=== PATIENT | male | born 1930 | race Caucasian/White ===

== ENCOUNTER 2016-06-10 07:18 | Day surgery (SDC) | payer MEDICARE ==
[2016-06-08 10:54] VITALS: BMI 36.8
[2016-06-10 08:24] VITALS: TEMP 97.9
[2016-06-10] MEDS: LACTATED RINGERS 1,000 ML IV SCH ×2 (08:32→08:38)
[2016-06-10 08:36] LABS: Glucose,Whole Blood 81 mg/dL (75-99)
[2016-06-10] MEDS ORDERED: PROPOFOL 10 MG/ML 20 ML VIAL IV ONE (08:49)
--- NOTE | 2016-06-10 09:05 | P.PCN ---
Date of Procedure: 06/10/16 Procedure(s) Performed: BRIEF HISTORY: Patient is a 85-year-old, pleasant, white male, scheduled for an upper endoscopy as a part of evaluation of persistent epigastric pain since January of last year. He has the symptoms 3 or 4 times a week and lasts several hours. He denies any heartburn. He does complain of excessive belching. He reports no significant change in her symptoms with eating and denies any nausea vomiting. No recent weight loss. PROCEDURE PERFORMED: Esophagogastroduodenoscopy. PREOPERATIVE DIAGNOSIS: Persistent epigastric pain of 3 months duration IV sedation per anesthesia. PROCEDURE: After informed consent was obtained, the patient was brought into the endoscopy unit. IV conscious sedation was administered by Anesthesia under continuous monitoring. Initially the Olympus GIF-140 video endoscope was inserted into the mouth. Esophagus intubated without any difficulty. It was gradually advanced into the stomach and duodenum and carefully examined. The bulb and the second part of the duodenum appeared normal. The scope at this time was withdrawn to the stomach, adequately insufflated with air, and upon careful examination, mucosa of the antrum, had mild diffuse gastritis and biopsies were done from this area. The body, cardia and the fundus appeared normal. The scope was then withdrawn into the esophagus. The GE junction was located at 43 cm from the incisors. The esophagus appeared normal. Biopsies were also done from the distal esophagus. There were no erosions or ulcerations seen and the patient tolerated the procedure well. IMPRESSION: 1. Mild antral diffuse gastritis. 2. No evidence of esophagitis or peptic ulcer disease. RECOMMENDATIONS: The findings of this examination were discussed with the patient as well as his family. He was advised to follow with the biopsy results. In the meantime he will given a prescription for Prilosec 20 mg daily half hour before dinner time and was briefly educated about antireflux measures. If symptoms do not improve in 4 weeks he was advised to follow up in office for further evaluation.
[2016-06-10 09:27] VITALS: BP 115/77; PULSE 95; RESP 18
== END 2016-06-10 09:45 | disposition home or self-care (01) ==
LOC: ORWHC2ENDO 07:18
PROVIDERS: ATTEND Internal Medicine Gastroenterology
DX: K29.50 Unspecified chronic gastritis without bleeding (principal); E11.9 Type 2 diabetes mellitus without complications; Z79.84 Long term (current) use of oral hypoglycemic drugs; Z79.4 Long term (current) use of insulin; Z79.899 Other long term (current) drug therapy; Z91.09 Other allergy status, other than to drugs and biological substances
CPT/HCPCS: 88305; 88342; 43239; J2704

== ENCOUNTER → 2016-08-14 | Outpatient (CLI) | payer MEDICARE ==
--- NOTE | 2016-08-14 16:23 | CT ---
EXAMINATION TYPE: CT chest wo con DATE OF EXAM: 08/14/2016 4:13 PM COMPARISON: 09/23/2015 HISTORY: f/u for pulm nodules CT DLP: [address] of the chest was performed with lung and mediastinal window settings submitted. The la ck of contrast limits evaluation of the vascular, mediastinal and parenchymal structures including th e upper abdomen. LUNGS: Extensive pleural-based calcifications compatible with asbestos-related pleural disease. There is a nodular pleural thickening at the left lung base stable relative to the prior study. There is a lso focal pleural-based density with comet tail extending to the left hilum felt to reflect round ate lectasis. Overall the appearance is unchanged relative to the prior examination. No evidence of the n ew nodularity. Hyperinflation compatible with COPD. MEDIASTINUM/DOMITILA: Thoracic aorta is of normal caliber with limited evaluation given lack of contrast . Atheromatous changes noted of the thoracic aorta. 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 The he art is mildly enlarged. No evidence for mediastinal mass. No lymph nodes greater than 1cm. UPPER ABDOMEN: No significant abnormality is seen. OTHER: No significant other abnormality. IMPRESSION: 1. 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 No interval change appreciated .
== END | disposition home or self-care (01) ==
LOC: RADCTMAIN 15:59
PROVIDERS: ATTEND Internal Medicine
DX: J94.8 Other specified pleural conditions (principal)
CPT/HCPCS: 71250

== ENCOUNTER 2016-08-30 08:40 | Inpatient (IN) | payer MEDICARE ==
[2016-08-30] MEDS ORDERED: IPRATROPIUM 0.5 MG/2.5 ML NEBU INHALATION STA (09:17)
[2016-08-30] MEDS ORDERED: ALBUTEROL NEBULIZED 2.5 MG/3 ML INHALATION STA (09:17)
[2016-08-30] MEDS ORDERED: ACETAMINOPHEN TAB 500 MG TAB PO STA (09:17)
[2016-08-30] MEDS ORDERED: methylPREDNISolone SOD SUCCI 125 MG/2 ML VIAL IV STA (09:17)
[2016-08-30] MEDS ORDERED: IBUPROFEN IV 600 MG in SODIUM CHLORIDE 0.9% 250 ML IV STA (09:18)
--- NOTE | 2016-08-30 09:20 | ED ---
General Adult HPI - General Chief complaint: Shortness of Breath Stated complaint: ELISSA, COUGHING Time Seen by Provider: 08/30/16 08:45 Source: patient, RN notes reviewed Mode of arrival: wheelchair Limitations: no limitations - History of Present Illness Initial comments: This is an 85-year-old male with past medical history significant for asbestosis. Patient comes in today for difficulty breathing. Patient states it started yesterday. Patient states been coughing quite a bit but he can't seem to breathe in or out. Patient states he is also a diabetic with hypertension. Patient denies any heart problems. Patient denies COPD. Patient denies any chest pain or palpitations. Patient denies any abdominal pain patient denies nausea vomiting or diarrhea per patient denies headache patient denies numbness weakness. Patient denies any recent injury or trauma. - Related Data Home Medications Medication Instructions Recorded Confirmed Aspirin 325 mg PO DAILY 06/08/16 08/30/16 Calcium Carbonate/Vitamin D3 1 tab PO BID 06/08/16 08/30/16 [Calcium 500-Vit D3 600 Tablet] Flaxseed Oil [[place]-3 Flaxseed Oil] 1,000 mg PO BID 06/08/16 08/30/16 Garlic 1 tab PO BID 06/08/16 08/30/16 Insulin Aspart [NovoLOG] 40 unit SQ TID-W/MEALS 06/08/16 08/30/16 Insulin Glargine [Lantus] 70 unit SQ BID 06/08/16 08/30/16 Losartan [Cozaar] 12.5 mg PO QAM 06/08/16 08/30/16 Montelukast [Singulair] 10 mg PO HS 06/08/16 08/30/16 Vit A,C & E/Lutein/Minerals 1 tab PO DAILY 06/08/16 08/30/16 [Ocuvite with Lutein Tablet] metFORMIN HCL 1,000 mg PO BID 06/08/16 08/30/16 Glucosamine Sulfate 750 mg PO BID 08/30/16 08/30/16 Ipratropium-Albuterol Nebulize 3 ml INHALATION RT-Q6H PRN 08/30/16 08/30/16 [Duoneb 0.5 mg-3 mg/3 ml Soln] Levalbuterol Nebulized [Xopenex 1.25 mg INHALATION RT-Q4H PRN 08/30/16 08/30/16 Nebulized] Allergies Allergy/AdvReac Type Severity Reaction Status Date / Time Iodine and Iodide Containing Allergy Unknown Verified 08/30/16 09:17 Produc Review of Systems ROS Statement: Those systems with pertinent positive or pertinent negative responses have been documented in the HPI. ROS Other: All systems not noted in ROS Statement are negative. Past Medical History Past Medical History: Diabetes Mellitus, Hyperlipidemia, Hypertension, Sleep Apnea/CPAP/BIPAP Additional Past Medical History / Comment(s): Abdominal bloating and gas pain- worse in the afternoon after meals,Asbestos,Uses 02 at 2.5 liters uses during the day and at night with cpap,Aortic valve stenosis,SOB with activity History of Any Multi-Drug Resistant Organisms: None Reported Past Surgical History: Cholecystectomy, Hernia Repair, Joint Replacement, Orthopedic Surgery Additional Past Surgical History / Comment(s): umbilical hernia,rt shoulder repair, rt knee replace. Past Anesthesia/Blood Transfusion Reactions: No Reported Reaction Past Psychological History: No Psychological Hx Reported Smoking Status: Former smoker Past Alcohol Use History: None Reported Additional Past Alcohol Use History / Comment(s): quit smoking 1959', smoked for approx 30 yrs >1ppd Past Drug Use History: None Reported - Past Family History Mother Family Medical History: No Reported History Additional Family Medical History / Comment(s): Parkinson's Father Family Medical History: Cancer Additional Family Medical History / Comment(s): esophagus General Exam - General Exam Comments Initial Comments: GENERAL: Patient is well-developed and well-nourished. Patient is nontoxic and well- hydrated and is in moderate distress. ENT: Neck is soft and supple. No significant lymphadenopathy is noted. Oropharynx is clear. Moist mucous membranes. Neck has full range of motion without eliciting any pain. EYES: The sclera were anicteric and conjunctiva were pink and moist. Extraocular movements were intact and pupils were equal round and reactive to light. Eyelids were unremarkable. PULMONARY: Decreased breath sounds throughout CARDIOVASCULAR: Patient is tachycardic at about 120 beats a minute ABDOMEN: Soft and nontender with normal bowel sounds. No palpable organomegaly was noted. There is no palpable pulsatile mass. SKIN: Skin is clear with no lesions or rashes and otherwise unremarkable. NEUROLOGIC: Patient is alert and oriented x3. Cranial nerves II through XII are grossly intact. Motor and sensory are also intact. Normal speech, volume and content. Symmetrical smile. MUSCULOSKELETAL: Normal extremities with adequate strength and full range of motion. No lower extremity swelling or edema. No calf tenderness. LYMPHATICS: No significant lymphadenopathy is noted PSYCHIATRIC: Normal psychiatric evaluation. Normal interpersonal interactions appears functionally intact in deals appropriately with others. No signs of depression. Mild anxiety Limitations: no limitations Course Vital Signs 08/30/16 08/30/16 08/30/16 08:41 09:16 09:37 Temperature 100.5 F H 101.4 F H Pulse Rate 125 H 129 H 127 H Respiratory 26 H 20 Rate Blood Pressure 123/83 134/81 O2 Sat by Pulse 88 L 97 Oximetry 08/30/16 08/30/16 08/30/16 09:42 10:12 10:40 Temperature 99.4 F Pulse Rate 130 H 125 H Respiratory 20 20 Rate Blood Pressure O2 Sat by Pulse 98 Oximetry Medical Decision Making - Medical Decision Making EKG shows sinus tachycardia at 123 bpm KS interval 164 QRS is 88 QT interval 320 QTC is 458. Patient's T-wave inversions in leads 1 and aVL and precordial leads V5 and V6. Patient's chest x-ray shows, pneumonia, also pulmonary edema. Patient's troponin was elevated I started patient on heparin because of this. Because of the patient's x-ray and fever I gave the patient Levaquin as well. I also gave the patient some Lasix because of the fluid overload seen on the chest x-ray. I spoke with Dr. Enriquez he agreed to admit the patient I admitted the patient I wrote orders and consult cardiology I continued the heparin Nitropaste aspirin Lasix and Levaquin on the floor. - Lab Data Result diagrams: 08/30/16 09:24 08/30/16 09:24 Lab Results 08/30/16 08/30/16 08/30/16 Range/Units 09:24 09:24 09:24 WBC 12.3 H (3.8-10.6) k/uL RBC 4.62 (4.30-5.90) m/uL Hgb 13.8 (13.0-17.5) gm/dL Hct 42.3 (39.0-53.0) % MCV 91.6 (80.0-100.0) fL MCH 29.8 (25.0-35.0) pg MCHC 32.6 (31.0-37.0) g/dL RDW 14.9 (11.5-15.5) % Plt Count 183 (150-450) k/uL Neutrophils % 83 % Lymphocytes % 9 % Monocytes % 5 % Eosinophils % 2 % Basophils % 0 % Neutrophils # 10.1 H (1.3-7.7) k/uL Lymphocytes # 1.1 (1.0-4.8) k/uL Monocytes # 0.6 (0-1.0) k/uL Eosinophils # 0.2 (0-0.7) k/uL Basophils # 0.1 (0-0.2) k/uL PT (9.0-12.0) sec INR (<1.1) APTT (22.0-30.0) sec Sodium 137 (137-145) mmol/L Potassium 4.8 (3.5-5.1) mmol/L Chloride 104 (98-107) mmol/L Carbon Dioxide 24 (22-30) mmol/L Anion Gap 9 mmol/L BUN 15 (9-20) mg/dL Creatinine 0.84 (0.66-1.25) mg/dL Est GFR (MDRD) Af Amer >60 (>60 ml/min/1.73 sqM) Est GFR (MDRD) Non-Af >60 (>60 ml/min/1.73 sqM) Glucose 158 H (74-99) mg/dL Plasma Lactic Acid Joel (0.7-2.0) mmol/L Calcium 9.3 (8.4-10.2) mg/dL Magnesium 1.7 (1.6-2.3) mg/dL Total Bilirubin 2.6 H (0.2-1.3) mg/dL AST 37 (17-59) U/L ALT 45 (21-72) U/L Alkaline Phosphatase 109 (38-126) U/L Total Creatine Kinase 231 H (55-170) U/L CK-MB (CK-2) 6.3 H* (0.0-2.4) ng/mL CK-MB (CK-2) Rel Index 2.7 Troponin I 0.595 H* (0.000-0.034) ng/mL NT-Pro-B Natriuret Pep pg/mL Total Protein 6.9 (6.3-8.2) g/dL Albumin 3.6 (3.5-5.0) g/dL Urine Color Urine Appearance (Clear) Urine pH (5.0-8.0) Ur Specific [place] (1.001-1.035) Urine Protein (Negative) Urine Glucose (UA) (Negative) Urine Ketones (Negative) Urine Blood (Negative) Urine Nitrite (Negative) Urine Bilirubin (Negative) Urine Urobilinogen (<2.0) mg/dL Ur Leukocyte Esterase (Negative) Urine RBC (0-5) /hpf Urine Bacteria (None) /hpf Hyaline Casts (0-2) /lpf Urine Mucus (None) /hpf 08/30/16 08/30/16 08/30/16 Range/Units 09:24 09:24 09:24 WBC (3.8-10.6) k/uL RBC (4.30-5.90) m/uL Hgb (13.0-17.5) gm/dL Hct (39.0-53.0) % MCV (80.0-100.0) fL MCH (25.0-35.0) pg MCHC (31.0-37.0) g/dL RDW (11.5-15.5) % Plt Count (150-450) k/uL Neutrophils % % Lymphocytes % % Monocytes % % Eosinophils % % Basophils % % Neutrophils # (1.3-7.7) k/uL Lymphocytes # (1.0-4.8) k/uL Monocytes # (0-1.0) k/uL Eosinophils # (0-0.7) k/uL Basophils # (0-0.2) k/uL PT 11.9 (9.0-12.0) sec INR 1.2 (<1.1) APTT 26.2 (22.0-30.0) sec Sodium (137-145) mmol/L Potassium (3.5-5.1) mmol/L Chloride (98-107) mmol/L Carbon Dioxide (22-30) mmol/L Anion Gap mmol/L BUN (9-20) mg/dL Creatinine (0.66-1.25) mg/dL Est GFR (MDRD) Af Amer (>60 ml/min/1.73 sqM) Est GFR (MDRD) Non-Af (>60 ml/min/1.73 sqM) Glucose (74-99) mg/dL Plasma Lactic Acid Joel 1.9 (0.7-2.0) mmol/L Calcium (8.4-10.2) mg/dL Magnesium (1.6-2.3) mg/dL Total Bilirubin (0.2-1.3) mg/dL AST (17-59) U/L ALT (21-72) U/L Alkaline Phosphatase (38-126) U/L Total Creatine Kinase (55-170) U/L CK-MB (CK-2) (0.0-2.4) ng/mL CK-MB (CK-2) Rel Index Troponin I (0.000-0.034) ng/mL NT-Pro-B Natriuret Pep 3060 pg/mL Total Protein (6.3-8.2) g/dL Albumin (3.5-5.0) g/dL Urine Color Urine Appearance (Clear) Urine pH (5.0-8.0) Ur Specific [place] (1.001-1.035) Urine Protein (Negative) Urine Glucose (UA) (Negative) Urine Ketones (Negative) Urine Blood (Negative) Urine Nitrite (Negative) Urine Bilirubin (Negative) Urine Urobilinogen (<2.0) mg/dL Ur Leukocyte Esterase (Negative) Urine RBC (0-5) /hpf Urine Bacteria (None) /hpf Hyaline Casts (0-2) /lpf Urine Mucus (None) /hpf 08/30/16 Range/Units 09:39 WBC (3.8-10.6) k/uL RBC (4.30-5.90) m/uL Hgb (13.0-17.5) gm/dL Hct (39.0-53.0) % MCV (80.0-100.0) fL MCH (25.0-35.0) pg MCHC (31.0-37.0) g/dL RDW (11.5-15.5) % Plt Count (150-450) k/uL Neutrophils % % Lymphocytes % % Monocytes % % Eosinophils % % Basophils % % Neutrophils # (1.3-7.7) k/uL Lymphocytes # (1.0-4.8) k/uL Monocytes # (0-1.0) k/uL Eosinophils # (0-0.7) k/uL Basophils # (0-0.2) k/uL PT (9.0-12.0) sec INR (<1.1) APTT (22.0-30.0) sec Sodium (137-145) mmol/L Potassium (3.5-5.1) mmol/L Chloride (98-107) mmol/L Carbon Dioxide (22-30) mmol/L Anion Gap mmol/L BUN (9-20) mg/dL Creatinine (0.66-1.25) mg/dL Est GFR (MDRD) Af Amer (>60 ml/min/1.73 sqM) Est GFR (MDRD) Non-Af (>60 ml/min/1.73 sqM) Glucose (74-99) mg/dL Plasma Lactic Acid Joel (0.7-2.0) mmol/L Calcium (8.4-10.2) mg/dL Magnesium (1.6-2.3) mg/dL Total Bilirubin (0.2-1.3) mg/dL AST (17-59) U/L ALT (21-72) U/L Alkaline Phosphatase (38-126) U/L Total Creatine Kinase (55-170) U/L CK-MB (CK-2) (0.0-2.4) ng/mL CK-MB (CK-2) Rel Index Troponin I (0.000-0.034) ng/mL NT-Pro-B Natriuret Pep pg/mL Total Protein (6.3-8.2) g/dL Albumin (3.5-5.0) g/dL Urine Color Yellow Urine Appearance Clear (Clear) Urine pH 5.0 (5.0-8.0) Ur Specific [place] 1.019 (1.001-1.035) Urine Protein 1+ H (Negative) Urine Glucose (UA) Negative (Negative) Urine Ketones 1+ H (Negative) Urine Blood Negative (Negative) Urine Nitrite Negative (Negative) Urine Bilirubin Negative (Negative) Urine Urobilinogen 2.0 (<2.0) mg/dL Ur Leukocyte Esterase Negative (Negative) Urine RBC 1 (0-5) /hpf Urine Bacteria Rare H (None) /hpf Hyaline Casts 3 H (0-2) /lpf Urine Mucus Rare H (None) /hpf Critical Care Time Critical Care Time: Yes Total Critical Care Time: 35 Disposition Clinical Impression: Non-STEMI (non-ST elevated myocardial infarction), Pulmonary edema, Pneumonia Disposition: ADMITTED IP TO THIS HOSP Time of Disposition: 11:40
[2016-08-30 09:36] LABS: Basophils # (A) 0.1 k/uL (0-0.2); Basophils % (A) 0 %; CH 29.4; CHCM 32.3; Eosinophils # (A) 0.2 k/uL (0-0.7); Eosinophils % (A) 2 %; HCT 42.3 % (39.0-53.0); HDW 2.89; HGB 13.8 gm/dL (13.0-17.5); Luc # (Auto) 0.15; Luc % (Auto) 1; Lymphocytes # (A) 1.1 k/uL (1.0-4.8); Lymphocytes % (A) 9 %; MCH 29.8 pg (25.0-35.0); MCHC 32.6 g/dL (31.0-37.0); MCV 91.6 fL (80.0-100.0); Mean Platelet Volume 6.9; Monocytes # (A) 0.6 k/uL (0-1.0); Monocytes % (A) 5 %; Neutrophils # (A) 10.1 k/uL (1.3-7.7); Neutrophils % (A) 83 %; RBC 4.62 m/uL (4.30-5.90); RDW 14.9 % (11.5-15.5); WBC 12.3 k/uL (3.8-10.6); WBC (Perox) 12.45
[2016-08-30 09:45] LABS: INR 1.2 (<1.1); Partial Thromboplastin Time 26.2 sec (22.0-30.0); Prothrombin Time 11.9 sec (9.0-12.0)
[2016-08-30 09:57] LABS: ALT 45 U/L (21-72); AST 37 U/L (17-59); Alkaline Phosphatase 109 U/L (38-126); Anion Gap 9 mmol/L; Blood Urea Nitrogen 15 mg/dL (9-20); Calcium 9.3 mg/dL (8.4-10.2); Carbon Dioxide 24 mmol/L (22-30); Chloride 104 mmol/L (98-107); Glucose 158 mg/dL (74-99); Magnesium 1.7 mg/dL (1.6-2.3); Non-African American GFR(MDRD) >60 (>60 ml/min/1.73 sqM); Potassium 4.8 mmol/L (3.5-5.1); Sodium 137 mmol/L (137-145); Total Bilirubin 2.6 mg/dL (0.2-1.3); Total Protein 6.9 g/dL (6.3-8.2)
[2016-08-30 09:58] LABS: Appearance,Urine Clear (Clear); Bacteria,Urine Rare /hpf; Bilirubin,Urine Negative (Negative); Glucose,Urine (UA) Negative (Negative); Ketones,Urine 1+ (Negative); Leukocyte Esterase,Urine Negative (Negative); Mucus,Urine Rare /hpf; Nitrite,Urine Negative (Negative); Particle Count 3922; Protein,Urine 1+ (Negative); RBC,Urine 1 /hpf (0-5); Specific Gravity,Urine 1.019 (1.001-1.035); UA Billing (MACRO vs. MICRO) MICRO
--- NOTE | 2016-08-30 10:30 | XR ---
EXAMINATION TYPE: XR chest 2V DATE OF EXAM: 08/30/2016 10:21 AM COMPARISON: Correlation CT 08/14/2016 HISTORY: 85-year-old male with difficulty breathing TECHNIQUE: Frontal and lateral views FINDINGS: The heart is mildly enlarged. Atherosclerotic calcifications throughout the aorta. Diffuse interstiti al opacities somewhat more confluent in the right suprahilar region and left mid to lower lung. Multi ple calcified pleural plaques are present. Blunting of the left posterior costophrenic angle since [address] where there is pleural parenchymal scarring. Large central pulmonary arteries sug gesting pulmonary arterial hypertension. IMPRESSION: 1. Multiple calcified pleural plaques and interstitial prominence related to prior asbestos exposure. The interstitium appears more accentuated as compared to the 08/14/2016 CT. 2. Correlate for possible etiologies including fluid overload with mild pulmonary vascular congestion or atypical pneumonias. 3. Pulmonary arterial hypertension.
[2016-08-30 10:47] LABS: Creatine Kinase MB 6.3 ng/mL (0.0-2.4); Troponin I 0.595 ng/mL (0.000-0.034)
[2016-08-30] MEDS ORDERED: LEVOFLOXACIN 750MG-D5W PMX 750 MG in DEXTROSE/WATER 1 150ML.BAG IVPB STA (10:54)
[2016-08-30] MEDS ORDERED: FUROSEMIDE 10 MG/ML 2 ML VIAL IV ONE (10:54)
[2016-08-30] MEDS ORDERED: HEPARIN SODIUM,PORCINE 5,000 UNIT/ML 1 ML VIAL IV ONE (10:55)
[2016-08-30] MEDS ORDERED: LEVOFLOXACIN 750MG-D5W PMX 750 MG in DEXTROSE/WATER 1 150ML.BAG IVPB SCH (11:00)
[2016-08-30] MEDS: HEPARIN SODIUM,PORCINE/D5W PMX 25,000 UNIT in DEXTROSE/WATER 1 500ML.BAG IV SCH (11:33)
[2016-08-30] MEDS ORDERED: ASPIRIN 81 MG CHEW PO STA (11:37)
[2016-08-30] MEDS ORDERED: NITROGLYCERIN OINT 1 INCH/GM PACKET TOPICAL STA (11:38)
[2016-08-30] MEDS ORDERED: ACETAMINOPHEN TAB 325 MG TAB PO PRN (11:41)
[2016-08-30] MEDS ORDERED: NITROGLYCERIN SL TABS 0.4 MG TAB SUBLINGUAL PRN (11:41)
[2016-08-30 13:17] VITALS: BMI 39.6
[2016-08-30 13:48] LABS: Glucose,Whole Blood 225 mg/dL (75-99)
[2016-08-30] MEDS ORDERED: FUROSEMIDE 10 MG/ML 2 ML VIAL IV SCH (16:00)
[2016-08-30 16:11] LABS: Creatine Kinase MB 9.1 ng/mL (0.0-2.4); Troponin I 0.729 ng/mL (0.000-0.034)
--- NOTE | 2016-08-30 17:04 | P.HPIM ---
History of Present Illness H&P Date: 08/30/16 85-year-old gentleman with history of asbestosis remote history of tobacco use comes in to the hospital with the progressive worsening of difficulty breathing over the last 2-3 days. She states that he has associated cough that is nonproductive in nature. In the emergency room patient underwent a chest x-ray which showed the chronic changes around the pulmonary vasculature, concerning for some congestion. Patient was given 1 dose of Lasix thereafter added a dose of steroid as well. EKG did reveal some diffuse ST elevations however did not meet criteria. There is a troponin elevation around 0.7 at peak Patient denies having any chest pain, headaches, dizziness, nausea, vomiting, diarrhea. Patient denies having any previous history of heart disease. In the time of my evaluation patient is doing well states that he is 100% better. Denies having any chest pain difficulty breathing with ambulation or exertion at this time. Review of Systems All systems: negative (Noted in HPI) Past Medical History Past Medical History: Diabetes Mellitus, Hyperlipidemia, Hypertension, Sleep Apnea/CPAP/BIPAP Additional Past Medical History / Comment(s): Abdominal bloating and gas pain- worse in the afternoon after meals,Asbestos,Uses 02 at 2.5 liters uses during the day and at night with cpap,Aortic valve stenosis,SOB with activity History of Any Multi-Drug Resistant Organisms: None Reported Past Surgical History: Cholecystectomy, Heart Catheterization, Hernia Repair, Joint Replacement, Orthopedic Surgery Additional Past Surgical History / Comment(s): umbilical hernia,rt shoulder repair, rt knee replace. Past Anesthesia/Blood Transfusion Reactions: No Reported Reaction Past Psychological History: No Psychological Hx Reported Smoking Status: Former smoker Past Alcohol Use History: None Reported Additional Past Alcohol Use History / Comment(s): quit smoking 1959', smoked for approx 30 yrs >1ppd Past Drug Use History: None Reported - Past Family History Mother Family Medical History: No Reported History Additional Family Medical History / Comment(s): Parkinson's Father Family Medical History: Cancer Additional Family Medical History / Comment(s): esophagus Medications and Allergies Home Medications Medication Instructions Recorded Confirmed Type Aspirin 325 mg PO DAILY 06/08/16 08/30/16 History Calcium Carbonate/Vitamin D3 1 tab PO BID 06/08/16 08/30/16 History [Calcium 500-Vit D3 600 Tablet] Flaxseed Oil [[place]-3 Flaxseed Oil] 1,000 mg PO BID 06/08/16 08/30/16 History Garlic 1 tab PO BID 06/08/16 08/30/16 History Insulin Aspart [NovoLOG] 40 unit SQ TID-W/MEALS 06/08/16 08/30/16 History Insulin Glargine [Lantus] 70 unit SQ BID 06/08/16 08/30/16 History Losartan [Cozaar] 12.5 mg PO QAM 06/08/16 08/30/16 History Montelukast [Singulair] 10 mg PO HS 06/08/16 08/30/16 History Vit A,C & E/Lutein/Minerals 1 tab PO DAILY 06/08/16 08/30/16 History [Ocuvite with Lutein Tablet] metFORMIN HCL 1,000 mg PO BID 06/08/16 08/30/16 History Glucosamine Sulfate 750 mg PO BID 08/30/16 08/30/16 History Ipratropium-Albuterol Nebulize 3 ml INHALATION RT-Q6H PRN 08/30/16 08/30/16 History [Duoneb 0.5 mg-3 mg/3 ml Soln] Levalbuterol Nebulized [Xopenex 1.25 mg INHALATION RT-Q4H PRN 08/30/16 08/30/16 History Nebulized] Allergies Allergy/AdvReac Type Severity Reaction Status Date / Time Iodine and Iodide Containing Allergy Unknown Verified 08/30/16 09:17 Produc Physical Exam Vitals: Vital Signs Temp Pulse Pulse Resp BP BP Pulse Ox 08/30/16 16:28 20 08/30/16 16:27 97.1 F L 108 H 20 114/75 98 08/30/16 13:28 97 F L 115 H 22 112/69 94 L 08/30/16 12:34 115 H 18 115/65 98 08/30/16 12:28 97.7 F 115 H 22 124/58 96 Intake and Output 08/30/16 08/30/16 08/30/16 06:59 14:59 22:59 Other: Weight 125.191 kg Patient Weight 08/31/16 06:59 Weight 125.191 kg Physical exam Gen. appearance oriented 3 in no distress Neck is supple no JVD Lungs good air entry clear to auscultation no rhonchi or wheezing Heart S1-S2 heard regular rate and rhythm no murmurs appreciated Abdomen is soft nontender no organomegaly bowel sounds are intact Neurologically cranial nerves II-12 grossly intact no focal motor or sensory deficits noted Skin no abnormalities appreciated Results CBC & Chem 7: 08/30/16 09:24 08/30/16 09:24 Labs: Abnormal Lab Results - Last 24 Hours (Table) 08/30/16 08/30/16 Range/Units 13:45 14:45 POC Glucose (mg/dL) 225 H (75-99) mg/dL Total Creatine Kinase 311 H (55-170) U/L CK-MB (CK-2) 9.1 H* (0.0-2.4) ng/mL Troponin I 0.729 H* (0.000-0.034) ng/mL Thrombosis Risk Factor Assmnt - Choose All That Apply Any of the Below Risk Factors Present?: No Other Risk Factors: Yes Each Risk Factor Represents 3 Points: Age 75 years or older Other congenital or acquired thrombophilia - If yes, enter type in comment: No Thrombosis Risk Factor Assessment Total Risk Factor Score: 3 Thrombosis Risk Factor Assessment Level: Moderate Risk Assessment and Plan Plan: #1 non-Q-wave myocardial infarction #2 elevated BNP and other sequelae concerning for an acute exacerbation of heart failure unknown EF #3 history of hypertension #4 diabetes most type II currently on insulin therapy #5 objective sleep apnea #6 obesity #7 asbestosis #8 remote history of tobacco use #9 hyperglycemia induced secondary to steroid use Plan Continue IV heparin. We'll start the patient on 40 mgIV Lasix. Patient is stable. Denies having any orthopnea PND at this time. We'll give the patient Levemir 30 units and NovoLog 20 units subcu at this time. Change Levemir to 25 units twice a day and NovoLog 15 units 3 times a day and pre-meal sliding scale additionally Chest x-ray stable we'll repeat labs in a.m. we'll discontinue steroids continue Levaquin as patient did have this atypical cough last few days with chest x-ray findings as bronchitis be an underlying etiology however if patient continues to be stable by tomorrow we'll discontinue that as well underlying etiology of the heart being the primary source will be entertained O2 and when necessary morphine for ACS protocol Cardiac the consultation echocardiogram will also be ordered.
[2016-08-30 17:09] LABS: Glucose,Whole Blood 328 mg/dL (75-99)
[2016-08-30] MEDS ORDERED: HEPARIN SODIUM,PORCINE 5,000 UNIT/ML 1 ML VIAL IV PRN (17:42)
[2016-08-30] MEDS: INSULIN LISPRO (humaLOG) 300 UNIT/3 ML VIAL SQ SCH ×2 (18:26→20:32)
[2016-08-30] MEDS: NITROGLYCERIN OINT 1 INCH/GM PACKET TOPICAL SCH ×2 (18:27→22:52)
[2016-08-30] MEDS: INSULIN GLARGINE 100 UNIT/ML 10 ML VIAL SQ SCH (18:44)
[2016-08-30] MEDS: LEVALBUTEROL NEB 1.25 MG/3 ML AMP INHALATION PRN (19:40)
[2016-08-30 20:37] LABS: Glucose,Whole Blood 303 mg/dL (75-99)
[2016-08-30] MEDS ORDERED: INSULIN GLARGINE 100 UNIT/ML 10 ML VIAL SQ SCH (21:00)
[2016-08-30 22:21] LABS: Creatine Kinase MB 19.8 ng/mL (0.0-2.4)
[2016-08-30 22:22] LABS: Troponin I 1.72 ng/mL (0.000-0.034)
[2016-08-31] MEDS: LEVALBUTEROL NEB 1.25 MG/3 ML AMP INHALATION PRN ×4 (03:10→20:47)
[2016-08-31 06:11] LABS: Glucose,Whole Blood 239 mg/dL (75-99)
[2016-08-31] MEDS: NITROGLYCERIN OINT 1 INCH/GM PACKET TOPICAL SCH ×3 (06:20→18:57)
[2016-08-31] MEDS: INSULIN LISPRO (humaLOG) 300 UNIT/3 ML VIAL SQ SCH ×8 (06:20→20:36)
[2016-08-31] MEDS: HEPARIN SODIUM,PORCINE/D5W PMX 25,000 UNIT in DEXTROSE/WATER 1 500ML.BAG IV SCH ×2 (07:12→22:29)
[2016-08-31 07:17] LABS: Basophils % (A) 0 %; CH 29.8; CHCM 32.6; Eosinophils # (A) 0.1 k/uL (0-0.7); Eosinophils % (A) 0 %; HCT 42.1 % (39.0-53.0); HGB 13.5 gm/dL (13.0-17.5); Luc # (Auto) 0.09; Luc % (Auto) 1; Lymphocytes # (A) 0.6 k/uL (1.0-4.8); Lymphocytes % (A) 4 %; MCH 29.4 pg (25.0-35.0); MCV 91.8 fL (80.0-100.0); Mean Platelet Volume 6.9; Monocytes # (A) 0.8 k/uL (0-1.0); Monocytes % (A) 4 %; Neutrophils % (A) 92 %; RBC 4.59 m/uL (4.30-5.90); RDW 14.5 % (11.5-15.5); WBC 18.5 k/uL (3.8-10.6); WBC (Perox) 19.15
[2016-08-31 07:34] LABS: ALT 41 U/L (21-72); AST 55 U/L (17-59); Alkaline Phosphatase 90 U/L (38-126); Anion Gap 11 mmol/L; Blood Urea Nitrogen 28 mg/dL (9-20); Calcium 9.1 mg/dL (8.4-10.2); Carbon Dioxide 21 mmol/L (22-30); Chloride 103 mmol/L (98-107); Cholesterol 196 mg/dL (<200); Glucose 256 mg/dL (74-99); HDL Cholesterol 39 mg/dL (40-60); Non-African American GFR(MDRD) >60 (>60 ml/min/1.73 sqM); Sodium 135 mmol/L (137-145); Total Bilirubin 1.7 mg/dL (0.2-1.3); Total Protein 6.8 g/dL (6.3-8.2); Triglycerides 101 mg/dL (<150)
[2016-08-31 07:37] LABS: Potassium 4.9 mmol/L (3.5-5.1)
[2016-08-31] MEDS ORDERED: LEVOFLOXACIN 750MG-D5W PMX 750 MG in DEXTROSE/WATER 1 150ML.BAG IVPB SCH (09:00)
[2016-08-31] MEDS: INSULIN GLARGINE 100 UNIT/ML 10 ML VIAL SQ SCH ×2 (09:08→20:32)
[2016-08-31] MEDS: ASPIRIN 325 MG TAB PO SCH (09:08)
[2016-08-31] MEDS: FUROSEMIDE 10 MG/ML 4 ML VIAL IV SCH (09:09)
--- NOTE | 2016-08-31 11:11 | P.CRDCN ---
History of Present Illness Consult date: 08/31/16 History of present illness: This is a pleasant 85-year-old gentleman who sees Dr. 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 The patient is known to have chronic exertional dyspnea secondary to the chronic respiratory failure. Over the last few days his shortness of breath was getting worse. He did not experience any discomfort in the chest. No dizziness or lightheadedness and no syncope. He has been experiencing what it seems to be also a cough productive of sputum without any fever or chills. The chest x-ray showed chronic changes with mild vascular congestion. The EKG showed sinus tachycardia with diffuse ST changes consistent with ischemia most prominent in the lateral leads. The cardiac enzymes were checked also and came in to be consistent with acute ND. The troponin was more than 1. He underwent an echocardiogram which showed severely impaired LV function with an ejection fraction of 15-20% with global hypokinesia and evidence of very thickened aortic valve leaflets with mild to moderate aortic stenosis. He stated that he was told about the aortic stenosis in the past. I had a discussion with the patient and his family in the room. They would like to proceed with further workup and heart catheterization. I am going to add statin and metoprolol to the aspirin. I will obtain the medical records from the office. I would also contact Dr. Parmar to perform the heart catheterization on this gentleman. Past Medical History Past Medical History: Diabetes Mellitus, Hyperlipidemia, Hypertension, Sleep Apnea/CPAP/BIPAP Additional Past Medical History / Comment(s): Abdominal bloating and gas pain- worse in the afternoon after meals,Asbestos,Uses 02 at 2.5 liters uses during the day and at night with cpap,Aortic valve stenosis,SOB with activity History of Any Multi-Drug Resistant Organisms: None Reported Past Surgical History: Cholecystectomy, Heart Catheterization, Hernia Repair, Joint Replacement, Orthopedic Surgery Additional Past Surgical History / Comment(s): umbilical hernia,rt shoulder repair, rt knee replace. Past Anesthesia/Blood Transfusion Reactions: No Reported Reaction Past Psychological History: No Psychological Hx Reported Smoking Status: Former smoker Past Alcohol Use History: None Reported Additional Past Alcohol Use History / Comment(s): quit smoking 1960's, smoked for approx 30 yrs >1ppd Past Drug Use History: None Reported - Past Family History Mother Family Medical History: No Reported History Additional Family Medical History / Comment(s): Parkinson's Father Family Medical History: Cancer Additional Family Medical History / Comment(s): esophagus Medications and Allergies Home Medications Medication Instructions Recorded Confirmed Type Aspirin 325 mg PO DAILY 06/08/16 08/30/16 History Calcium Carbonate/Vitamin D3 1 tab PO BID 06/08/16 08/30/16 History [Calcium 500-Vit D3 600 Tablet] Flaxseed Oil [[place]-3 Flaxseed Oil] 1,000 mg PO BID 06/08/16 08/30/16 History Garlic 1 tab PO BID 06/08/16 08/30/16 History Insulin Aspart [NovoLOG] 15 unit SQ TID-W/MEALS 06/08/16 08/30/16 History Insulin Glargine [Lantus] 20 unit SQ BID 06/08/16 08/30/16 History Losartan [Cozaar] 12.5 mg PO QAM 06/08/16 08/30/16 History Montelukast [Singulair] 10 mg PO HS 06/08/16 08/30/16 History Vit A,C & E/Lutein/Minerals 1 tab PO DAILY 06/08/16 08/30/16 History [Ocuvite with Lutein Tablet] metFORMIN HCL 1,000 mg PO BID 06/08/16 08/30/16 History Glucosamine Sulfate 750 mg PO BID 08/30/16 08/30/16 History Ipratropium-Albuterol Nebulize 3 ml INHALATION RT-Q6H PRN 08/30/16 08/30/16 History [Duoneb 0.5 mg-3 mg/3 ml Soln] Levalbuterol Nebulized [Xopenex 1.25 mg INHALATION RT-Q4H PRN 08/30/16 08/30/16 History Nebulized] Allergies Allergy/AdvReac Type Severity Reaction Status Date / Time Iodine and Iodide Containing Allergy Unknown Verified 08/30/16 09:17 Produc Physical Exam Vitals: Vital Signs Temp Pulse Pulse Resp BP BP Pulse Ox 08/31/16 08:27 110 H 08/31/16 08:18 108 H 98 08/31/16 08:00 97.1 F L 121 H 91/49 97 08/31/16 03:20 100 08/31/16 03:10 105 H 08/31/16 02:56 97.6 F 126 H 18 117/72 91 L 08/30/16 23:36 98.1 F 106 H 17 110/68 91 L 08/30/16 20:00 97.2 F L 113 H 18 130/78 96 08/30/16 19:51 112 H 08/30/16 19:40 110 H 96 08/30/16 16:28 20 08/30/16 16:27 97.1 F L 108 H 20 114/75 98 08/30/16 13:28 97 F L 115 H 22 112/69 94 L 08/30/16 12:34 115 H 18 115/65 98 08/30/16 12:28 97.7 F 115 H 22 124/58 96 Intake and Output 08/30/16 08/31/16 08/31/16 22:59 06:59 14:59 Intake Total 270.918 80 237.33 Output Total 400 700 Balance -129.082 -620 237.33 Intake: IV 20 80 Heparin Sodium,Porcine/ 20 80 D5w Pmx 25,000 unit In Dextrose/Water 1 500ml. bag @ 8 UNITS/KG/HR 20.03 mls/hr IV .Q24H [facility] Rx#: [id number] Intake, IV Titration 250.918 237.33 Amount Heparin Sodium,Porcine/ 250.918 237.33 D5w Pmx 25,000 unit In Dextrose/Water 1 500ml. bag @ 8 UNITS/KG/HR 20.03 mls/hr IV .Q24H [facility] Rx#: [id number] Output: Urine 400 700 Other: Voiding Method Urinal Urinal Weight 121.4 kg - Constitutional General appearance: no acute distress - Respiratory Respiratory: bilateral: diminished - Cardiovascular Rhythm: regular Heart sounds: normal: S1, S2 Results 08/31/16 06:53 08/31/16 06:53 Cardiac Enzymes 08/30/16 08/30/16 08/31/16 Range/Units 14:45 21:20 06:53 AST 55 (17-59) U/L CK-MB (CK-2) 9.1 H* 19.8 H* (0.0-2.4) ng/mL Troponin I 0.729 H* 1.720 H* (0.000-0.034) ng/mL Coagulation 08/30/16 08/30/16 08/31/16 Range/Units 17:14 21:20 06:53 APTT 35.9 H 64.0 H 35.4 H (22.0-30.0) sec Lipids 08/31/16 Range/Units 06:53 Triglycerides 101 (<150) mg/dL Cholesterol 196 (<200) mg/dL HDL Cholesterol 39 L (40-60) mg/dL CBC 08/31/16 Range/Units 06:53 WBC 18.5 H (3.8-10.6) k/uL RBC 4.59 (4.30-5.90) m/uL Hgb 13.5 (13.0-17.5) gm/dL Hct 42.1 (39.0-53.0) % Plt Count 176 (150-450) k/uL Comprehensive Metabolic Panel 08/31/16 Range/Units 06:53 Sodium 135 L (137-145) mmol/L Potassium 4.9 (3.5-5.1) mmol/L Chloride 103 (98-107) mmol/L Carbon Dioxide 21 L (22-30) mmol/L BUN 28 H (9-20) mg/dL Creatinine 0.90 (0.66-1.25) mg/dL Glucose 256 H (74-99) mg/dL Calcium 9.1 (8.4-10.2) mg/dL AST 55 (17-59) U/L ALT 41 (21-72) U/L Alkaline Phosphatase 90 (38-126) U/L Total Protein 6.8 (6.3-8.2) g/dL Albumin 3.6 (3.5-5.0) g/dL Current Medications Generic Name Dose Route Start Last Admin Trade Name Freq PRN Reason Stop Dose Admin Acetaminophen 650 mg 08/30/16 11:41 Tylenol Tab PO Q4HR PRN Mild Pain Aspirin 325 mg 08/31/16 09:00 08/31/16 09:08 Aspirin PO 325 mg DAILY [facility] Administration Furosemide 40 mg 08/31/16 09:00 08/31/16 09:09 Lasix IV 40 mg DAILY [facility] Administration Heparin Sodium (Porcine) 0 unit 08/30/16 17:42 08/30/16 18:29 Heparin IV 4,000 unit PER PROTOCOL PRN Administration Low PTT Protocol Heparin Sodium/Dextrose 25,000 500 mls @ 20.03 mls/hr 08/30/16 11:00 07:12 unit/ IV Solution IV 10.98 units/kg/hr .Q24H [facility] 27.49 mls/hr Protocol Administration 8 UNITS/KG/HR Levofloxacin 750 mg/ IV 150 mls @ 100 mls/hr 08/31/16 09:00 08/31/16 09:10 Solution IVPB 100 mls/hr Q24HR [facility] Administration Insulin Glargine 25 unit 08/30/16 19:00 08/31/16 09:08 Lantus SQ 25 unit BID [facility] Administration Insulin Human Lispro 40 unit 08/30/16 17:30 08/31/16 09:08 Humalog SQ Not Given TID-W/MEALS [facility] Insulin Human Lispro 0 unit 08/30/16 21:00 08/31/16 06:20 Humalog SQ 8 unit ACHS [facility] Administration Protocol Levalbuterol HCl 1.25 mg 08/30/16 16:46 08/31/16 08:15 Xopenex Nebulized INHALATION 1.25 mg RT-Q4H PRN Administration Shortness Of Breath Losartan Potassium 12.5 mg 08/31/16 09:00 Cozaar PO QAM [facility] Nitroglycerin 1 inch 08/30/16 18:00 08/31/16 06:20 Nitro-Bid Oint TOPICAL 1 inch Q6HR [facility] Administration Nitroglycerin 0.4 mg 08/30/16 11:41 Nitrostat SUBLINGUAL Q5M PRN Chest Pain Intake and Output 08/30/16 08/31/16 08/31/16 22:59 06:59 14:59 Intake Total 270.918 80 237.33 Output Total 400 700 Balance -129.082 -620 237.33 Intake: IV 20 80 Heparin Sodium,Porcine/ 20 80 D5w Pmx 25,000 unit In Dextrose/Water 1 500ml. bag @ 8 UNITS/KG/HR 20.03 mls/hr IV .Q24H [facility] Rx#: [id number] Intake, IV Titration 250.918 237.33 Amount Heparin Sodium,Porcine/ 250.918 237.33 D5w Pmx 25,000 unit In Dextrose/Water 1 500ml. 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
[2016-08-31] MEDS: LOSARTAN 25 MG TAB PO SCH (11:29)
[2016-08-31 11:36] LABS: Glucose,Whole Blood 235 mg/dL (75-99)
[2016-08-31] MEDS ORDERED: SODIUM CHLORIDE 0.9% 1,000 ML in EMPTY BAG 1 BAG IV ONE (12:01)
[2016-08-31] MEDS ORDERED: ALPRAZolam 0.25 MG TAB PO PRN (12:01)
[2016-08-31] MEDS ORDERED: NITROGLYCERIN SL TABS 0.4 MG TAB SUBLINGUAL PRN (12:01)
--- NOTE | 2016-08-31 12:15 | ECHOF ---
Referral Reason:as MEASUREMENTS -------- HEIGHT: 182.9 cm WEIGHT: 121.1 kg BP: 117/72 IVSd: 1.3 cm (0.6 - 1.1) LVIDd: 4.4 cm (3.9 - 5.3) LVPWd: 1.4 cm (0.6 - 1.1) IVSs: 1.2 cm LVIDs: 4.2 cm LVPWs: 1.7 cm LAESV Index (A-L): 26.08 ml/m Ao Diam: 3.6 cm (2.0 - 3.7) AV Cusp: 0.6 cm (1.5 - 2.6) LA Diam: 4.5 cm (2.7 - 3.8) MV EXCURSION: 10.976 mm (> 18.000) MV EF SLOPE: 38 mm/s (70 - 150) EPSS: 1.4 cm MV E Bubba: 0.99 m/s MV DecT: 187 ms MV A Bubba: 0.56 m/s MV E/A Ratio: 1.77 AV maxP.29 mmHg AV meanP.16 mmHg FINDINGS -------- Sinus rhythm with extra systolic beats. This was a technically difficult study with suboptimal views. There is mild concentric left ventricular hypertrophy. There is severe global hypokinesis of LV . Overall left ventricular systolic function is severely impaired with, an EF < 20%. The right ventricle is normal in size and function. The left atrium is mildly dilated. The right atrium is normal in size. 1.5mg of Definity was utilized for enhancement of images Aortic valve is trileaflet and is severely thickened. There is [id number] aortic stenosis present. Peak/mean gradient across the Aortic Valve is 34.29mmHg / 21.16mmHg. The mitral valve leaflets are mildly thickened. Mild mitral regurgitation is present. Mild tricuspid regurgitation present. There is mild pulmonary hypertension. Unable to estimate RVSP due to inadequate TR jet spectral doppler profile. Pulmonic valve appears structurally normal. The aortic root size is normal. The pericardium is normal. CONCLUSIONS -------- 1. Sinus rhythm with extra systolic beats. 2. Aortic valve is trileaflet and is severely thickened. 3. Peak/mean gradient across the Aortic Valve is 34.29mmHg / 21.16mmHg. 4. The mitral valve leaflets are mildly thickened. 5. Mild mitral regurgitation is present. 6. Mild tricuspid regurgitation present. 7. There is mild pulmonary hypertension. 8. Pulmonic valve appears structurally normal. 9. The aortic root size is normal. 10. The pericardium is normal. 11. This was a technically difficult study with suboptimal views. 12. There is mild concentric left ventricular hypertrophy. 13. There is severe global hypokinesis of LV . 14. Overall left ventricular systolic function is severely impaired with, an EF < 20%. 15. The right ventricle is normal in size and function. 16. The left atrium is mildly dilated. 17. The right atrium is normal in size. 18. 1.5mg of Definity was utilized for enhancement of images NONPROFIT MANAGER: Jie Rodriguez RDCS
[2016-08-31 16:35] LABS: Glucose,Whole Blood 68 mg/dL (75-99)
[2016-08-31 17:03] LABS: Glucose,Whole Blood 86 mg/dL (75-99)
--- NOTE | 2016-08-31 18:52 | P.PN ---
Subjective 85-year-old gentleman with history of asbestosis remote history of tobacco use comes in to the hospital with the progressive worsening of difficulty breathing over the last 2-3 days. She states that he has associated cough that is nonproductive in nature. In the emergency room patient underwent a chest x-ray which showed the chronic changes around the pulmonary vasculature, concerning for some congestion. Patient was given 1 dose of Lasix thereafter added a dose of steroid as well. EKG did reveal some diffuse ST elevations however did not meet criteria. There is a troponin elevation around 0.7 at peak Patient denies having any chest pain, headaches, dizziness, nausea, vomiting, diarrhea. Patient denies having any previous history of heart disease. In the time of my evaluation patient is doing well states that he is 100% better. Denies having any chest pain difficulty breathing with ambulation or exertion at this time. 08/31/16 No cp, headaches, nausea, vomiting, diarrhea, abdominal pain. some difficulty in breathing is reported. No orthopnea or PND Objective - Vital Signs Vital signs: Vital Signs Temp 97.1 F L 08/31/16 08:00 Pulse 110 H 08/31/16 16:00 Resp 18 08/31/16 02:56 BP 88/59 08/31/16 16:00 Pulse Ox 89 L 08/31/16 16:00 Intake & Output 08/30/16 08/31/16 08/31/16 18:59 06:59 18:59 Intake Total 139.125 067.129 2529.33 Output Total 1100 1100 Balance 139.125 -888.207 169.33 Weight 125.191 kg 121.4 kg Intake: IV 100 160 Heparin Sodium,Porcine/ 100 160 D5w Pmx 25,000 unit In Dextrose/Water 1 500ml. bag @ 8 UNITS/KG/HR 20.03 mls/hr IV .Q24H [facility] Rx#: [id number] Intake, IV Titration 139.125 111.793 629.33 Amount Heparin Sodium,Porcine/ 139.125 111.793 237.33 D5w Pmx 25,000 unit In Dextrose/Water 1 500ml. bag @ 8 UNITS/KG/HR 20.03 mls/hr IV .Q24H [facility] Rx#: [id number] Levofloxacin 750Mg-D5w 150 Pmx 750 mg In Dextrose/ Water 1 150ml.bag @ 100 mls/hr IVPB Q24HR [facility] Rx# :[id number] Sodium Chloride 0.9% 1, 242 000 ml In Empty Bag 1 bag @ 1 ML/KG/HR 121.4 mls/ hr IV .Q8H15M [facility] Rx#: [id number] Oral 480 Output: Urine 1100 1100 Other: Voiding Method Urinal # Voids 1 - Constitutional General appearance: Present: no acute distress - EENT Eyes: Present: EOMI, PERRLA - Neck Neck: Present: normal ROM - Respiratory Respiratory: bilateral: CTA, rales, negative: rhonchi, wheezing - Cardiovascular Rhythm: regular Heart sounds: normal: S1, S2 Abnormal Heart Sounds: Present: systolic murmur - Gastrointestinal General gastrointestinal: Present: normal bowel sounds, soft. Absent: organomegaly - Integumentary Integumentary: Present: normal - Neurologic Neurologic: Present: CNII-XII intact. Absent: focal deficits - Musculoskeletal Musculoskeletal: Present: generalized weakness - Psychiatric Psychiatric: Present: A&O x's 3, appropriate affect - Labs CBC & Chem 7: 08/31/16 06:53 08/31/16 06:53 Labs: Abnormal Lab Results - Last 24 Hours (Table) 08/30/16 08/30/16 08/30/16 Range/Units 20:27 21:20 21:20 WBC (3.8-10.6) k/uL Neutrophils # (1.3-7.7) k/uL Lymphocytes # (1.0-4.8) k/uL APTT 64.0 H (22.0-30.0) sec Sodium (137-145) mmol/L Carbon Dioxide (22-30) mmol/L BUN (9-20) mg/dL Glucose (74-99) mg/dL POC Glucose (mg/dL) 303 H (75-99) mg/dL Total Bilirubin (0.2-1.3) mg/dL Total Creatine Kinase 433 H (55-170) U/L CK-MB (CK-2) 19.8 H* (0.0-2.4) ng/mL Troponin I 1.720 H* (0.000-0.034) ng/mL LDL Cholesterol, Calc (0-99) mg/dL HDL Cholesterol (40-60) mg/dL 08/31/16 08/31/16 08/31/16 Range/Units 06:08 06:53 06:53 WBC 18.5 H (3.8-10.6) k/uL Neutrophils # 17.0 H (1.3-7.7) k/uL Lymphocytes # 0.6 L (1.0-4.8) k/uL APTT (22.0-30.0) sec Sodium 135 L (137-145) mmol/L Carbon Dioxide 21 L (22-30) mmol/L BUN 28 H (9-20) mg/dL Glucose 256 H (74-99) mg/dL POC Glucose (mg/dL) 239 H (75-99) mg/dL Total Bilirubin 1.7 H (0.2-1.3) mg/dL Total Creatine Kinase (55-170) U/L CK-MB (CK-2) (0.0-2.4) ng/mL Troponin I (0.000-0.034) ng/mL LDL Cholesterol, Calc 137 H (0-99) mg/dL HDL Cholesterol 39 L (40-60) mg/dL 08/31/16 08/31/16 08/31/16 Range/Units 06:53 11:35 16:28 WBC (3.8-10.6) k/uL Neutrophils # (1.3-7.7) k/uL Lymphocytes # (1.0-4.8) k/uL APTT 35.4 H (22.0-30.0) sec Sodium (137-145) mmol/L Carbon Dioxide (22-30) mmol/L BUN (9-20) mg/dL Glucose (74-99) mg/dL POC Glucose (mg/dL) 235 H 68 L (75-99) mg/dL Total Bilirubin (0.2-1.3) mg/dL Total Creatine Kinase (55-170) U/L CK-MB (CK-2) (0.0-2.4) ng/mL Troponin I (0.000-0.034) ng/mL LDL Cholesterol, Calc (0-99) mg/dL HDL Cholesterol (40-60) mg/dL Assessment and Plan Plan: #1 non-Q-wave myocardial infarction #2 acute exacerbation of heart failure , systolic in nature, with > #3 history of hypertension #4 diabetes most type II currently on insulin therapy #5 objective sleep apnea #6 obesity #7 asbestosis #8 remote history of tobacco use #9 hyperglycemia induced secondary to steroid use 10/ Plan Continue IV heparin. We'll start the patient on 40 mgIV Lasix. echo results reveiwed increased valve gradient cardiac cath murtaza change insulin to levemir 20 units am, 10 bedtime 1/2 basal due to NPO tonight. premeal 15units tid strict I/o DVT prophylaxis.
[2016-08-31] MEDS: ATORVASTATIN 40 MG TAB PO SCH (20:16)
[2016-08-31] MEDS: METOPROLOL TARTRATE 12.5 MG TAB PO SCH (20:17)
[2016-08-31] MEDS: ALPRAZolam 0.5 MG TAB PO PRN (20:26)
[2016-08-31 20:35] LABS: Glucose,Whole Blood 104 mg/dL (75-99)
[2016-09-01] MEDS: LEVALBUTEROL NEB 1.25 MG/3 ML AMP INHALATION PRN ×4 (00:39→20:18)
[2016-09-01] MEDS: NITROGLYCERIN OINT 1 INCH/GM PACKET TOPICAL SCH ×3 (03:15→17:28)
[2016-09-01 06:09] LABS: Glucose,Whole Blood 141 mg/dL (75-99)
[2016-09-01] MEDS: INSULIN LISPRO (humaLOG) 300 UNIT/3 ML VIAL SQ SCH ×7 (06:20→22:24)
[2016-09-01] MEDS: FUROSEMIDE 10 MG/ML 4 ML VIAL IV SCH (06:22)
[2016-09-01] MEDS: ASPIRIN 325 MG TAB PO SCH (06:22)
[2016-09-01] MEDS: LOSARTAN 25 MG TAB PO SCH (06:22)
[2016-09-01] MEDS: METOPROLOL TARTRATE 12.5 MG TAB PO SCH (06:24)
[2016-09-01 06:44] LABS: Basophils % (A) 0 %; CH 29.3; CHCM 31.7; Eosinophils # (A) 0.2 k/uL (0-0.7); Eosinophils % (A) 1 %; HCT 37.8 % (39.0-53.0); HDW 2.79; HGB 12.2 gm/dL (13.0-17.5); Hypochromasia Slight; Luc # (Auto) 0.16; Luc % (Auto) 1; Lymphocytes # (A) 1.4 k/uL (1.0-4.8); Lymphocytes % (A) 9 %; MCHC 32.3 g/dL (31.0-37.0); Mean Platelet Volume 7.1; Monocytes # (A) 0.8 k/uL (0-1.0); Monocytes % (A) 5 %; Neutrophils # (A) 13.2 k/uL (1.3-7.7); Neutrophils % (A) 84 %; RBC 4.06 m/uL (4.30-5.90); RDW 14.9 % (11.5-15.5); WBC 15.7 k/uL (3.8-10.6); WBC (Perox) 15.84
[2016-09-01 06:57] LABS: ALT 51 U/L (21-72); AST 57 U/L (17-59); Alkaline Phosphatase 95 U/L (38-126); Anion Gap 8 mmol/L; Blood Urea Nitrogen 28 mg/dL (9-20); Calcium 8.9 mg/dL (8.4-10.2); Carbon Dioxide 25 mmol/L (22-30); Chloride 101 mmol/L (98-107); Glucose 135 mg/dL (74-99); Magnesium 1.8 mg/dL (1.6-2.3); Non-African American GFR(MDRD) >60 (>60 ml/min/1.73 sqM); Potassium 4.1 mmol/L (3.5-5.1); Sodium 134 mmol/L (137-145); Total Bilirubin 1.2 mg/dL (0.2-1.3)
--- NOTE | 2016-09-01 09:39 | XR ---
EXAMINATION TYPE: XR chest 1V portable DATE OF EXAM: 09/01/2016 9:03 AM CLINICAL HISTORY: Difficulty breathing progress study. Pneumonia and pulmonary edema. TECHNIQUE: Single AP portable upright view of the chest is obtained. COMPARISON: Chest x-ray from August 30, 2016. FINDINGS: There is persistent cardiomegaly with atherosclerotic thoracic aorta. Calcified pleural pl aques are redemonstrated bilaterally. There is chronic parenchymal change with improved aeration righ t suprahilar region noted. There is left mid to lower lung opacities.. Suspect small left pleural eff usion or pleural thickening. No pneumothorax seen bilaterally. Osseous structures are intact. IMPRESSION: Calcified pleural plaques consistent with prior asbestos exposure. Chronic parenchymal ch anges and cardiomegaly. Cannot exclude left basilar infiltrate and/or atelectasis on background of ch ronic changes. Suspect small left pleural effusion. All these findings are stable. Improved aeration right upper lobe is seen. No new infiltrate is present.
[2016-09-01] MEDS ORDERED: IV FLUID CONTINUATION 725 ML IV ONE (11:00)
[2016-09-01] MEDS ORDERED: diphenhydrAMINE 50 MG/ML 1 ML VIAL IVP ONE (11:40)
[2016-09-01] MEDS ORDERED: LIDOCAINE 2% INJ 20 MG/ML SQ ONE (11:42)
[2016-09-01] MEDS ORDERED: MIDAZOLAM 2 MG/2 ML VIAL IV ONE (11:42)
[2016-09-01] MEDS ORDERED: methylPREDNISolone SOD SUCCI 125 MG/2 ML VIAL IV ONE (11:49)
[2016-09-01] MEDS ORDERED: IOHEXOL 350 MG/ML 125ML BOTTLE INJ ONE (12:06)
[2016-09-01] MEDS ORDERED: RX INFO: IV CONTRAST WAS GIVEN 1 EACH MISC MISCELLANE PRN (12:11)
[2016-09-01] MEDS ORDERED: SODIUM CHLORIDE 0.9% 1,000 ML IV SCH (12:15)
[2016-09-01] MEDS ORDERED: FUROSEMIDE 10 MG/ML 4 ML VIAL IV STA (12:56)
[2016-09-01 13:09] LABS: Glucose,Whole Blood 134 mg/dL (75-99)
[2016-09-01] MEDS: INSULIN GLARGINE 100 UNIT/ML 10 ML VIAL SQ SCH ×2 (14:57→22:24)
--- NOTE | 2016-09-01 15:07 | CDI ---
In responding to this query, please exercise your independent professional judgment. The [facility] Coding Staff and Clinical Documentation Specialists appreciate your assistance in clarifying documentation, maintaining compliance with coding guidelines, accurately documenting patients condition and capturing severity of illness. The fact that a question is asked does not imply that any particular answer is desired or expected. Communication forms are a method of clarifying documentation and are not made part of the Legal Health Record. Thank you in advance for your clarification. Last Revision, July 2015 To[address]ito Hugo [address] [facility] [place] [address] Documentation Clarification Form Date: 09/01/2016 2:31:00 PM From: Julia Chamorro Admit Date: 08/30/2016 11:41:00 AM Patient Name: Saad Higginbotham Visit Number: [id number] Discharge Date: Dr. Slick Zurita The patient presented with the following respiratory symptoms: Shortness of breath, cough History/Risk Factors: Diabetes mellitus type II, Hypertension, Chronic Respiratory failure, Sleep Apnea/CPAP/BIPAP, Tobacco use: Former smoker Home oxygen: 2.5 Liters Clinical Indicators: Decreased breath sounds through, tachycardic, Short of breath with activity. Vital signs/Pulse oximetry: 123/83 125 26 100.5, 88 % RA, 97 2/L, Chest x-ray: prior asbestos exposure. possible fluid overload with mild pulmonary vascular congestion or atypical pneumonias, Pulmonary atrial hypertension Treatment: Breathing tx: Xopenex Nebulized, Lasix IV Monitor O2 Sat's (titrate) In your professional opinion, can you please clarify if these findings signify one of the following conditions? Acuity: o Acute o Chronic o Acute on Chronic Respiratory Status: o Respiratory failure with hypercapnia o Respiratory failure with hypoxia o Other Diagnosis, please specify o Unable to determine Please document in your progress notes and discharge summary in order to capture severity of illness and risk of mortality. Include clinical findings that support your diagnosis. FYI: Press F11 to launch patient chart. Place X here if this finding has no clinical significance, is not applicable or if you are not able to provide any additional documentation. MTDD
[2016-09-01 16:40] LABS: Glucose,Whole Blood 195 mg/dL (75-99)
--- NOTE | 2016-09-01 18:34 | P.PN ---
Subjective 85-year-old gentleman with history of asbestosis remote history of tobacco use comes in to the hospital with the progressive worsening of difficulty breathing over the last 2-3 days. She states that he has associated cough that is nonproductive in nature. In the emergency room patient underwent a chest x-ray which showed the chronic changes around the pulmonary vasculature, concerning for some congestion. Patient was given 1 dose of Lasix thereafter added a dose of steroid as well. EKG did reveal some diffuse ST elevations however did not meet criteria. There is a troponin elevation around 0.7 at peak Patient denies having any chest pain, headaches, dizziness, nausea, vomiting, diarrhea. Patient denies having any previous history of heart disease. In the time of my evaluation patient is doing well states that he is 100% better. Denies having any chest pain difficulty breathing with ambulation or exertion at this time. 08/31/16 No cp, headaches, nausea, vomiting, diarrhea, abdominal pain. some difficulty in breathing is reported. No orthopnea or PND 09/01/16 Underwent cardiac cath today in failure received a dose of lasix to be taken back for atherotomy No cp , Abdominal pain , nausea, vomiting reported. Objective - Vital Signs Vital signs: Vital Signs Temp 96.7 F L 09/01/16 08:00 Pulse 97 09/01/16 14:30 Resp 19 09/01/16 06:00 BP 117/78 09/01/16 14:30 Pulse Ox 93 L 09/01/16 14:30 Intake & Output 08/31/16 09/01/16 09/01/16 18:59 06:59 18:59 Intake Total 1269.33 1045.858 525 Output Total 1100 Balance 169.33 1045.858 525 Weight 121.8 kg Intake: IV 160 125 Heparin Sodium,Porcine/ 160 D5w Pmx 25,000 unit In Dextrose/Water 1 500ml. bag @ 8 UNITS/KG/HR 20.03 mls/hr IV .Q24H [facility] Rx#: [id number] Intake, IV Titration 629.33 945.858 400 Amount Heparin Sodium,Porcine/ 237.33 945.858 D5w Pmx 25,000 unit In Dextrose/Water 1 500ml. bag @ 8 UNITS/KG/HR 20.03 mls/hr IV .Q24H [facility] Rx#: [id number] Levofloxacin 750Mg-D5w 150 Pmx 750 mg In Dextrose/ Water 1 150ml.bag @ 100 mls/hr IVPB Q24HR [facility] Rx# :[id number] Sodium Chloride 0.9% 1, 400 000 ml @ 100 mls/hr IV . Q10H [facility] Rx#:[id number] Sodium Chloride 0.9% 1, 242 000 ml In Empty Bag 1 bag @ 1 ML/KG/HR 121.4 mls/ hr IV .Q8H15M [facility] Rx#: [id number] Oral 480 100 Output: Urine 1100 Other: Voiding Method Urinal # Voids 1 - Constitutional General appearance: Present: no acute distress - EENT Eyes: Present: EOMI, PERRLA - Neck Neck: Present: normal ROM - Respiratory Respiratory: bilateral: rales, negative: diminished, rhonchi, wheezing - Cardiovascular Rhythm: regular Heart sounds: normal: S1, S2 Abnormal Heart Sounds: Absent: systolic murmur - Gastrointestinal General gastrointestinal: Present: normal bowel sounds, soft. Absent: organomegaly - Neurologic Neurologic: Present: CNII-XII intact. Absent: focal deficits - Psychiatric Psychiatric: Present: A&O x's 3, appropriate affect - Labs CBC & Chem 7: 09/01/16 05:51 09/01/16 05:51 Labs: Abnormal Lab Results - Last 24 Hours (Table) 08/31/16 09/01/16 09/01/16 Range/Units 20:33 01:07 05:51 WBC 15.7 H (3.8-10.6) k/uL RBC 4.06 L (4.30-5.90) m/uL Hgb 12.2 L (13.0-17.5) gm/dL Hct 37.8 L (39.0-53.0) % Neutrophils # 13.2 H (1.3-7.7) k/uL APTT 51.2 H (22.0-30.0) sec Sodium (137-145) mmol/L BUN (9-20) mg/dL Glucose (74-99) mg/dL POC Glucose (mg/dL) 104 H (75-99) mg/dL Total Protein (6.3-8.2) g/dL Albumin (3.5-5.0) g/dL 09/01/16 09/01/16 09/01/16 Range/Units 05:51 05:56 13:06 WBC (3.8-10.6) k/uL RBC (4.30-5.90) m/uL Hgb (13.0-17.5) gm/dL Hct (39.0-53.0) % Neutrophils # (1.3-7.7) k/uL APTT (22.0-30.0) sec Sodium 134 L (137-145) mmol/L BUN 28 H (9-20) mg/dL Glucose 135 H (74-99) mg/dL POC Glucose (mg/dL) 141 H 134 H (75-99) mg/dL Total Protein 6.0 L (6.3-8.2) g/dL Albumin 3.1 L (3.5-5.0) g/dL 09/01/16 Range/Units 16:39 WBC (3.8-10.6) k/uL RBC (4.30-5.90) m/uL Hgb (13.0-17.5) gm/dL Hct (39.0-53.0) % Neutrophils # (1.3-7.7) k/uL APTT (22.0-30.0) sec Sodium (137-145) mmol/L BUN (9-20) mg/dL Glucose (74-99) mg/dL POC Glucose (mg/dL) 195 H (75-99) mg/dL Total Protein (6.3-8.2) g/dL Albumin (3.5-5.0) g/dL Assessment and Plan Plan: #1 non-Q-wave myocardial infarction #2 acute exacerbation of heart failure , systolic in nature, with acute hypoxic respiratory failure #3 history of hypertension #4 diabetes most type II currently on insulin therapy #5 objective sleep apnea #6 obesity #7 asbestosis #8 remote history of tobacco use #9 hyperglycemia induced secondary to steroid use 10/ Plan Repeat heart cath for atherotomy renal function to be monitered. change insulin to levemir 20 units am, 10 bedtime 1/2 basal due to NPO tonight. premeal 15units tid strict I/o DVT prophylaxis.
[2016-09-01] MEDS: ATORVASTATIN 40 MG TAB PO SCH (20:16)
[2016-09-01] MEDS: METOPROLOL TARTRATE 25 MG TAB PO SCH (20:16)
[2016-09-01 21:08] LABS: Glucose,Whole Blood 263 mg/dL (75-99)
[2016-09-01] MEDS: ALPRAZolam 0.5 MG TAB PO PRN (22:24)
--- NOTE | 2016-09-01 22:46 | CC ---
DATE OF SERVICE: 09/01/2016 PERFORMING PHYSICIAN: Rachid Angeles M.D., felting machine operator. PROCEDURE PERFORMED: Selective right and left coronary angiogram. INDICATION: This is a pleasant 85-year-old gentleman with a past medical history significant for hypertension, dyslipidemia and obesity who presented to the hospital with symptoms of difficulty in breathing as well as low energy. He was ruled in for acute [id number] myocardial infarction. An echocardiogram was performed and showed cardiomyopathy with an ejection fraction of 35% with evidence of mild aortic stenosis. APPROACH: Right common femoral artery. COMPLICATIONS: None. LEVEL OF SEDATION: Moderate with a sedation length of half an hour. PROCEDURE DESCRIPTION: After obtaining informed consent, the patient was brought to the cardiac wastewater analyst lab analyst. The right groin was prepped in the usual sterile fashion. Local analgesia was achieved by injecting 2% Xylocaine subcutaneously into the right groin. The right common femoral artery was cannulated using micropuncture technique. The micropuncture wire passed easily. Then I placed a 6 Welsh sheath in the right common femoral artery. Subsequently I did selective right and left coronary angiogram. The right coronary angiogram was performed using a Miguel A Hernandez catheter. The left coronary angiogram was performed using a JL4.5 catheter. The procedure was completed without any complication. SELECTIVE CORONARY ANGIOGRAM: 1. Right coronary artery is a calcified artery. It has mild disease only. It bifurcates distally into PDA and PLV branches; both have mild disease only. 2. The left main is calcified as well with mild disease only. It bifurcates into the left circumflex, ramus intermedius and left anterior descending artery. 3. The left circumflex is a large-caliber vessel and it is a non-dominant vessel. The ostial left circumflex appeared to have a lesion in the range of 50%. The mid left circumflex appeared to have mild disease only and gives rise to an OM branch which seems to have mild disease only. The left circumflex distally appeared to have mild disease only. 4. The ramus intermedius is a moderate-caliber vessel with disease in the mid portion of about 50%. 5. The left anterior descending artery is a heavily calcified artery. The proximal LAD appeared to have an eccentric lesion that seemed to be in the range of 90% to 95%. The mid LAD appeared to have mild disease only. The LAD distally appeared to have mild disease only as well. CONCLUSION: 1. Calcified right and left coronary systems. 2. 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 POST-PROCEDURE MANAGEMENT: 1. Maximize medical treatment. 2. The patient will be brought back to undergo an atherectomy and stenting of the LAD.
[2016-09-02 06:13] LABS: Glucose,Whole Blood 286 mg/dL (75-99)
[2016-09-02] MEDS: INSULIN LISPRO (humaLOG) 300 UNIT/3 ML VIAL SQ SCH ×7 (06:56→22:00)
[2016-09-02 06:57] LABS: Basophils % (A) 0 %; CH 29.5; CHCM 31.5; Eosinophils % (A) 0 %; HCT 44.7 % (39.0-53.0); HDW 2.74; Hypochromasia Slight; Luc # (Auto) 0.08; Luc % (Auto) 1; Lymphocytes # (A) 0.9 k/uL (1.0-4.8); Lymphocytes % (A) 7 %; MCH 29.4 pg (25.0-35.0); MCHC 31.3 g/dL (31.0-37.0); MCV 94.1 fL (80.0-100.0); Monocytes # (A) 0.8 k/uL (0-1.0); Monocytes % (A) 6 %; Neutrophils # (A) 11.1 k/uL (1.3-7.7); Neutrophils % (A) 86 %; RBC 4.75 m/uL (4.30-5.90); RDW 14.8 % (11.5-15.5)
[2016-09-02 07:10] LABS: ALT 60 U/L (21-72); AST 45 U/L (17-59); Alkaline Phosphatase 111 U/L (38-126); Anion Gap 11 mmol/L; Blood Urea Nitrogen 35 mg/dL (9-20); Calcium 9.2 mg/dL (8.4-10.2); Carbon Dioxide 26 mmol/L (22-30); Chloride 98 mmol/L (98-107); Glucose 276 mg/dL (74-99); Non-African American GFR(MDRD) >60 (>60 ml/min/1.73 sqM); Potassium 4.9 mmol/L (3.5-5.1); Sodium 135 mmol/L (137-145); Total Bilirubin 1.3 mg/dL (0.2-1.3); Total Protein 6.8 g/dL (6.3-8.2)
[2016-09-02] MEDS: LEVALBUTEROL NEB 1.25 MG/3 ML AMP INHALATION PRN ×3 (07:52→19:40)
[2016-09-02] MEDS: LEVOFLOXACIN 750 MG TAB PO SCH (09:34)
[2016-09-02] MEDS: ASPIRIN 325 MG TAB PO SCH (09:34)
[2016-09-02] MEDS: METOPROLOL TARTRATE 25 MG TAB PO SCH ×2 (09:34→20:28)
[2016-09-02] MEDS: FUROSEMIDE 10 MG/ML 4 ML VIAL IV SCH (09:34)
[2016-09-02] MEDS: LOSARTAN 25 MG TAB PO SCH (09:35)
[2016-09-02] MEDS: INSULIN GLARGINE 100 UNIT/ML 10 ML VIAL SQ SCH ×2 (09:47→20:28)
[2016-09-02 11:47] LABS: Glucose,Whole Blood 222 mg/dL (75-99)
--- NOTE | 2016-09-02 14:58 | P.PN ---
Subjective This is a pleasant 85-year-old gentleman who sees Dr. 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 The patient is known to have chronic exertional dyspnea secondary to the chronic respiratory failure. Over the last few days his shortness of breath was getting worse. He did not experience any discomfort in the chest. No dizziness or lightheadedness and no syncope. He has been experiencing what it seems to be also a cough productive of sputum without any fever or chills. The chest x-ray showed chronic changes with mild vascular congestion. The EKG showed sinus tachycardia with diffuse ST changes consistent with ischemia most prominent in the lateral leads. The cardiac enzymes were checked also and came in to be consistent with acute MT. The troponin was more than 1. He underwent an echocardiogram which showed severely impaired LV function with an ejection fraction of 15-20% with global hypokinesia and evidence of very thickened aortic valve leaflets with mild to moderate aortic stenosis. He stated that he was told about the aortic stenosis in the past. The patient underwent a heart catheterization yesterday and that showed heavily calcified right and left coronary system with critical disease involving the proximal LAD which seems to be fairly calcified. I'll follow-up with the patient, he is feeling better. The shortness of breath has improved significantly. I did to stop the Lasix IV and start the patient on Lasix by mouth. Possibly the patient can be discharged tomorrow and I will discuss with him as an outpatient the option between medical treatment versus revascularization. Objective - Vital Signs Vital signs: Vital Signs Temp 97.2 F L 09/02/16 12:00 Pulse 88 09/02/16 12:00 Resp 20 09/02/16 12:00 BP 105/71 09/02/16 12:00 Pulse Ox 99 09/02/16 12:00 Intake & Output 09/01/16 09/02/16 09/02/16 18:59 06:59 18:59 Intake Total 765 300 400 Output Total 525 Balance 765 -225 400 Weight 120.4 kg Intake: IV 125 Intake, IV Titration 400 Amount Sodium Chloride 0.9% 1, 400 000 ml @ 100 mls/hr IV . Q10H [facility] Rx#:[id number] Oral 240 300 400 Output: Urine 525 Other: Voiding Method Urinal Urinal # Voids 1 - Constitutional General appearance: Present: no acute distress - Cardiovascular Rhythm: regular Heart sounds: normal: S1, S2 Abnormal Heart Sounds: Present: systolic murmur - Labs CBC & Chem 7: 09/02/16 06:17 09/02/16 06:17 Labs: Abnormal Lab Results - Last 24 Hours (Table) 09/01/16 09/01/16 09/02/16 Range/Units 16:39 21:07 06:11 WBC (3.8-10.6) k/uL Neutrophils # (1.3-7.7) k/uL Lymphocytes # (1.0-4.8) k/uL Sodium (137-145) mmol/L BUN (9-20) mg/dL Glucose (74-99) mg/dL POC Glucose (mg/dL) 195 H 263 H 286 H (75-99) mg/dL 09/02/16 09/02/16 09/02/16 Range/Units 06:17 06:17 11:44 WBC 13.0 H (3.8-10.6) k/uL Neutrophils # 11.1 H (1.3-7.7) k/uL Lymphocytes # 0.9 L (1.0-4.8) k/uL Sodium 135 L (137-145) mmol/L BUN 35 H (9-20) mg/dL Glucose 276 H (74-99) mg/dL POC Glucose (mg/dL) 222 H (75-99) mg/dL Assessment and Plan Plan: Assessment #1 acute non-ST elevation myocardial infarction #2 severe cardiomyopathy #3 mild aortic stenosis #4 mild congestive heart failure secondary to systolic dysfunction #5 chronic respiratory failure #6 multiple comorbid conditions Plan #1 change the Lasix to by mouth #2 continue monitor the kidney function and electrolytes #3 follow-up with the patient #4 possible DC home tomorrow
[2016-09-02 16:49] LABS: Glucose,Whole Blood 169 mg/dL (75-99)
--- NOTE | 2016-09-02 18:55 | P.PN ---
Subjective 85-year-old gentleman with history of asbestosis remote history of tobacco use comes in to the hospital with the progressive worsening of difficulty breathing over the last 2-3 days. She states that he has associated cough that is nonproductive in nature. In the emergency room patient underwent a chest x-ray which showed the chronic changes around the pulmonary vasculature, concerning for some congestion. Patient was given 1 dose of Lasix thereafter added a dose of steroid as well. EKG did reveal some diffuse ST elevations however did not meet criteria. There is a troponin elevation around 0.7 at peak Patient denies having any chest pain, headaches, dizziness, nausea, vomiting, diarrhea. Patient denies having any previous history of heart disease. In the time of my evaluation patient is doing well states that he is 100% better. Denies having any chest pain difficulty breathing with ambulation or exertion at this time. 08/31/16 No cp, headaches, nausea, vomiting, diarrhea, abdominal pain. some difficulty in breathing is reported. No orthopnea or PND 09/01/16 Underwent cardiac cath today in failure received a dose of lasix to be taken back for atherotomy 09/02/16 doing well states his breathing is stable No cp , Abdominal pain , nausea, vomiting reported. Objective - Vital Signs Vital signs: Vital Signs Temp 97 F L 09/02/16 15:33 Pulse 89 09/02/16 15:33 Resp 20 09/02/16 15:33 BP 104/68 09/02/16 15:33 Pulse Ox 98 09/02/16 15:33 Intake & Output 09/01/16 09/02/16 09/02/16 18:59 06:59 18:59 Intake Total 765 300 620 Output Total 525 Balance 765 -225 620 Weight 120.4 kg Intake: IV 125 Intake, IV Titration 400 Amount Sodium Chloride 0.9% 1, 400 000 ml @ 100 mls/hr IV . Q10H [facility] Rx#:[id number] Oral 240 300 620 Output: Urine 525 Other: Voiding Method Urinal Urinal # Voids 1 2 - Constitutional General appearance: Present: no acute distress - EENT Eyes: Present: PERRLA - Respiratory Respiratory: bilateral: diminished, rales, negative: rhonchi, wheezing - Cardiovascular Rhythm: regular Heart sounds: normal: S1, S2 Abnormal Heart Sounds: Absent: systolic murmur - Gastrointestinal General gastrointestinal: Present: normal bowel sounds, soft. Absent: organomegaly - Neurologic Neurologic: Present: CNII-XII intact. Absent: focal deficits - Psychiatric Psychiatric: Present: A&O x's 3, appropriate affect - Labs CBC & Chem 7: 09/02/16 06:17 09/02/16 06:17 Labs: Abnormal Lab Results - Last 24 Hours (Table) 09/01/16 09/02/16 09/02/16 Range/Units 21:07 06:11 06:17 WBC 13.0 H (3.8-10.6) k/uL Neutrophils # 11.1 H (1.3-7.7) k/uL Lymphocytes # 0.9 L (1.0-4.8) k/uL Sodium (137-145) mmol/L BUN (9-20) mg/dL Glucose (74-99) mg/dL POC Glucose (mg/dL) 263 H 286 H (75-99) mg/dL 09/02/16 09/02/16 09/02/16 Range/Units 06:17 11:44 16:39 WBC (3.8-10.6) k/uL Neutrophils # (1.3-7.7) k/uL Lymphocytes # (1.0-4.8) k/uL Sodium 135 L (137-145) mmol/L BUN 35 H (9-20) mg/dL Glucose 276 H (74-99) mg/dL POC Glucose (mg/dL) 222 H 169 H (75-99) mg/dL Assessment and Plan Plan: #1 non-Q-wave myocardial infarction #2 acute exacerbation of heart failure , systolic in nature, with acute hypoxic respiratory failure #3 history of hypertension #4 diabetes most type II currently on insulin therapy #5 objective sleep apnea #6 obesity #7 asbestosis #8 remote history of tobacco use #9 hyperglycemia induced secondary to steroid use 10/ Plan d/c home murtaza follow up with Dr Angeles in a week to discuss treatment options including takeback for atherotomy. renal function to be monitered. glucose levels to be monitered oral lasix. DVT prophylaxis.
[2016-09-02] MEDS: ATORVASTATIN 40 MG TAB PO SCH (20:28)
[2016-09-02 21:24] LABS: Glucose,Whole Blood 124 mg/dL (75-99)
[2016-09-03 06:28] LABS: ALT 68 U/L (21-72); AST 59 U/L (17-59); Alkaline Phosphatase 107 U/L (38-126); Anion Gap 8 mmol/L; Blood Urea Nitrogen 40 mg/dL (9-20); Calcium 9.1 mg/dL (8.4-10.2); Carbon Dioxide 30 mmol/L (22-30); Chloride 98 mmol/L (98-107); Glucose 92 mg/dL (74-99); Non-African American GFR(MDRD) >60 (>60 ml/min/1.73 sqM); Potassium 4.4 mmol/L (3.5-5.1); Sodium 136 mmol/L (137-145); Total Bilirubin 1.1 mg/dL (0.2-1.3); Total Protein 6.1 g/dL (6.3-8.2)
[2016-09-03 06:39] LABS: Glucose,Whole Blood 98 mg/dL (75-99)
[2016-09-03] MEDS: INSULIN LISPRO (humaLOG) 300 UNIT/3 ML VIAL SQ SCH ×4 (06:48→12:24)
[2016-09-03] MEDS: LEVALBUTEROL NEB 1.25 MG/3 ML AMP INHALATION PRN ×2 (07:49→11:07)
[2016-09-03] MEDS: ASPIRIN 325 MG TAB PO SCH (08:40)
[2016-09-03] MEDS: LEVOFLOXACIN 750 MG TAB PO SCH (08:40)
[2016-09-03] MEDS: METOPROLOL TARTRATE 25 MG TAB PO SCH (08:41)
[2016-09-03] MEDS: INSULIN GLARGINE 100 UNIT/ML 10 ML VIAL SQ SCH (08:47)
[2016-09-03] MEDS ORDERED: FUROSEMIDE 40 MG TAB PO SCH (09:00)
[2016-09-03 11:36] LABS: Glucose,Whole Blood 244 mg/dL (75-99)
[2016-09-03 11:52] VITALS: PULSE 80; RESP 16; TEMP 96.9
[2016-09-03 13:42] VITALS: BP 110/68
[2016-09-03] MEDS: LOSARTAN 25 MG TAB PO SCH (13:43)
--- NOTE | 2016-09-03 14:37 | P.DS ---
Providers Date of admission: 08/30/16 11:41 Attending physician: Lucero Hanknis Primary care physician: Mayelin Strickland [facility] Course: 5-year-old gentleman with history of asbestosis remote history of tobacco use comes in to the hospital with the progressive worsening of difficulty breathing over the last 2-3 days. She states that he has associated cough that is nonproductive in nature. In the emergency room patient underwent a chest x-ray which showed the chronic changes around the pulmonary vasculature, concerning for some congestion. Patient was given 1 dose of Lasix thereafter added a dose of steroid as well. EKG did reveal some diffuse ST elevations however did not meet criteria. There is a troponin elevation around 0.7 at peak Patient denies having any chest pain, headaches, dizziness, nausea, vomiting, diarrhea. Patient denies having any previous history of heart disease. In the time of my evaluation patient is doing well states that he is 100% better. Denies having any chest pain difficulty breathing with ambulation or exertion at this time. 08/31/16 No cp, headaches, nausea, vomiting, diarrhea, abdominal pain. some difficulty in breathing is reported. No orthopnea or PND 09/01/16 Underwent cardiac cath today in failure received a dose of lasix to be taken back for atherotomy 09/02/16 doing well states his breathing is stable No cp , Abdominal pain , nausea, vomiting reported. 2016 Patient appears to be stable states that he is close to his baseline currently on 2 L a supplement oxygen Denies having any cough headaches blurry vision nausea vomiting diarrhea at this time. - Constitutional General appearance: Present: no acute distress - EENT Eyes: Present: PERRLA - Respiratory Respiratory: bilateral: diminished, rales, negative: rhonchi, wheezing - Cardiovascular Rhythm: regular Heart sounds: normal: S1, S2 Abnormal Heart Sounds: Absent: systolic murmur - Gastrointestinal General gastrointestinal: Present: normal bowel sounds, soft. Absent: organomegaly - Neurologic Neurologic: Present: CNII-XII intact. Absent: focal deficits - Psychiatric Psychiatric: Present: A&O x's 3, appropriate affect Plan: #1 non-Q-wave myocardial infarction patient was noted to have calcified disease on the right and left. Patient apparently does have a critical proximal LAD lesion maximize medical therapy at this time patient is to follow-up with Dr. rAana to consider atherotomy at that time this was discussed with the family all the questions were answered patient is discharged home in a stable condition #2 acute exacerbation of heart failure , systolic in nature, with acute hypoxic respiratory failure #3 history of hypertension #4 diabetes most type II currently on insulin therapy #5 objective sleep apnea #6 obesity #7 asbestosis #8 remote history of tobacco use #9 hyperglycemia induced secondary to steroid use. Continue home regimen Plan - Discharge Summary New Discharge Prescriptions: Atorvastatin [Lipitor] 40 mg PO HS #30 tab Metoprolol Tartrate [Lopressor] 25 mg PO BID #60 tab Discharge Medication List Aspirin 325 mg PO DAILY 06/08/16 [History] Calcium Carbonate/Vitamin D3 [Calcium 500-Vit D3 600 Tablet] 1 tab PO BID [History] Flaxseed Oil [Tyler-3 Flaxseed Oil] 1,000 mg PO BID 06/08/16 [History] Garlic 1 tab PO BID 06/08/16 [History] Insulin Aspart [NovoLOG] 15 unit SQ TID-W/MEALS 06/08/16 [History] Insulin Glargine [Lantus] 20 unit SQ BID 06/08/16 [History] Losartan [Cozaar] 12.5 mg PO QAM 06/08/16 [History] Montelukast [Singulair] 10 mg PO HS 06/08/16 [History] Vit A,C & E/Lutein/Minerals [Ocuvite with Lutein Tablet] 1 tab PO DAILY [History] metFORMIN HCL 1,000 mg PO BID 06/08/16 [History] Glucosamine Sulfate 750 mg PO BID 08/30/16 [History] Ipratropium-Albuterol Nebulize [Duoneb 0.5 mg-3 mg/3 ml Soln] 3 ml INHALATION RT -Q6H PRN 08/30/16 [History] Levalbuterol Nebulized [Xopenex Nebulized] 1.25 mg INHALATION RT-Q4H PRN [History] Atorvastatin [Lipitor] 40 mg PO HS #30 tab 09/03/16 [Rx] Metoprolol Tartrate [Lopressor] 25 mg PO BID #60 tab 09/03/16 [Rx] Follow up Appointment(s)/Referral(s): Rachid Angeles MD [STAFF PHYSICIAN] - 09/11/16 3:45 pm [facility], [NON-STAFF] - Mayelin Strickland MD [Primary Care Provider] - 09/08/16 2:15 pm Patient Instructions/Handouts: Heart Failure (DC) Discharge Disposition: HOME SELF-CARE
--- NOTE | 2016-09-03 15:14 | P.PN ---
Subjective Principal diagnosis: Pneumonia This is a pleasant 85-year-old gentleman who sees Dr. 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 Over the last few days his shortness of breath was getting worse. He did not experience any discomfort in the chest. No dizziness or lightheadedness and no syncope.He has been experiencing what it seems to be also a cough productive of sputum without any fever or chills.The chest x-ray showed chronic changes with mild vascular congestion.The EKG showed sinus tachycardia with diffuse ST changes consistent with ischemia most prominent in the lateral leads.The cardiac enzymes were checked also and came in to be consistent with acute OH. The troponin was more than 1.He underwent an echocardiogram which showed severely impaired LV function with an ejection fraction of 15-20% with global hypokinesia and evidence of very thickened aortic valve leaflets with mild to moderate aortic stenosis. He stated that he was told about the aortic stenosis in the past. Patient was taken to the cardiac catheterization lab by Dr. Arana, and was found to have calcified right and left coronary systems. Critical disease involving the proximal LAD with an eccentric calcified lesion. At this time we are continuing maximal medical therapy, patient will be discharged home today and brought back to undergo arthrectomy and stent placement of the LAD. Objective - Vital Signs Vital signs: Vital Signs Temp 96.9 F L 09/03/16 11:51 Pulse 80 09/03/16 11:51 Resp 16 09/03/16 11:51 BP 110/68 09/03/16 13:42 Pulse Ox 98 09/03/16 11:51 Intake & Output 09/02/16 09/03/16 09/03/16 18:59 06:59 18:59 Intake Total 620 600 236 Output Total 500 Balance 620 100 236 Weight 120.7 kg Intake: Oral 620 600 236 Output: Urine 500 Other: Voiding Method Urinal Urinal Toilet Urinal # Voids 2 2 - Exam PHYSICAL EXAMINATION: HEENT: Head is atraumatic, normocephalic. Pupils equal, round. Neck is supple. There is no elevated jugular venous pressure. HEART EXAMINATION: S1 and S2 systolic ejection murmur is heard. CHEST EXAMINATION: Lungs are clear to auscultation and precussion. No chest wall tenderness is noted on palpation or with deep breathing. ABDOMEN: Soft, nontender. Bowel sounds are heard. No organomegaly noted. EXTREMITIES: 2+ peripheral pulses with no evidence of peripheral edema and no calf tenderness noted. NEUROLOGIC patient is awake, alert and oriented -3. . - Labs CBC & Chem 7: 09/02/16 06:17 09/03/16 05:54 Labs: Abnormal Lab Results - Last 24 Hours (Table) 09/02/16 09/02/16 09/03/16 Range/Units 16:39 21:22 05:54 Sodium 136 L (137-145) mmol/L BUN 40 H (9-20) mg/dL POC Glucose (mg/dL) 169 H 124 H (75-99) mg/dL Total Protein 6.1 L (6.3-8.2) g/dL Albumin 3.2 L (3.5-5.0) g/dL 09/03/16 Range/Units 11:34 Sodium (137-145) mmol/L BUN (9-20) mg/dL POC Glucose (mg/dL) 244 H (75-99) mg/dL Total Protein (6.3-8.2) g/dL Albumin (3.5-5.0) g/dL Assessment and Plan (1) Ischemic cardiomyopathy Status: Acute (2) Aortic stenosis Status: Acute (3) Systolic CHF, acute on chronic Status: Acute (4) Respiratory failure Status: Acute (5) S/P cardiac cath Status: Acute (6) Non-STEMI (non-ST elevated myocardial infarction) Status: Acute Plan: From cardiology's perspective, patient may be able to be discharged home today. We will make him a follow-up appointment with Dr. Angeles in the office post discharge. He will return for arthrectomy and stenting of the LAD as an outpatient. DNP note has been reviewed, I agree with a documented findings and plan of care. Patient was seen and examined.
== END 2016-09-03 15:43 | disposition home health service (06) | DRG 280 ==
LOC: EC 08:40 → 6SEL 11:41
PROVIDERS: ADMIT Internal Medicine; ATTEND Internal Medicine
PROC: B2111ZZ Fluoroscopy of Multiple Coronary Arteries using Low Osmolar Contrast (ICD-10-PCS; 2016-09-01)
PROC: 4A023N7 Measurement of Cardiac Sampling and Pressure, Left Heart, Percutaneous Approach (ICD-10-PCS; principal; 2016-09-01 11:00)
DX: I21.4 Non-ST elevation (NSTEMI) myocardial infarction (principal); I50.23 Acute on chronic systolic (congestive) heart failure; J96.21 Acute and chronic respiratory failure with hypoxia; E11.65 Type 2 diabetes mellitus with hyperglycemia; I35.0 Nonrheumatic aortic (valve) stenosis; I11.0 Hypertensive heart disease with heart failure; E66.9 Obesity, unspecified; E78.5 Hyperlipidemia, unspecified; G47.30 Sleep apnea, unspecified; I25.5 Ischemic cardiomyopathy; J61 Pneumoconiosis due to asbestos and other mineral fibers; T38.0X5A Adverse effect of glucocorticoids and synthetic analogues, initial encounter; I25.10 Atherosclerotic heart disease of native coronary artery without angina pectoris; Z79.4 Long term (current) use of insulin; Z79.82 Long term (current) use of aspirin; Z79.899 Other long term (current) drug therapy; Z87.891 Personal history of nicotine dependence; Z99.81 Dependence on supplemental oxygen; Z91.041 Radiographic dye allergy status; Z96.651 Presence of right artificial knee joint; Z68.38 Body mass index [BMI] 38.0-38.9, adult
CPT/HCPCS: 36415; 71010; 71020; 80053; 80061; 81001; 82550; 82553; 83605; 83735; 83880; 84484; 85025; 85610; 85730; 87040; 93005; 93306; 93454; 94640; 94644; 94660; 94760

== ENCOUNTER → 2016-10-23 | Outpatient (CLI) | payer MEDICARE ==
--- NOTE | 2016-10-23 13:20 | XR ---
EXAMINATION TYPE: XR chest 2V DATE OF EXAM: 10/23/2016 COMPARISON: Chest x-ray September 01, 2016. CT chest August 14, 2016. HISTORY: Left-sided pneumonia progress study TECHNIQUE: Frontal and lateral views of the chest are obtained. FINDINGS: Calcified pleural plaques bilaterally are redemonstrated. There is elevated right hemidiaph ragm again seen. Some left-sided pleural thickening is felt present. There is chronic left basilar op acity or scarring. No new focal airspace opacity, pleural effusion, or pneumothorax is clearly seen. There is cardiomegaly with atherosclerotic thoracic aorta redemonstrated. Osseous structures are inta ct. IMPRESSION: Chronic parenchymal and pleural changes and cardiomegaly redemonstrated. No significant change from most recent chest x-ray. No new acute pulmonary process identified.
== END ==
LOC: RADXRMAIN 13:00
PROVIDERS: ATTEND Internal Medicine Sleep Medicine
DX: J18.9 Pneumonia, unspecified organism (principal)
CPT/HCPCS: 71020

== ENCOUNTER → 2017-01-05 | Outpatient (CLI) | payer MEDICARE ==
[2017-01-05 10:32] LABS: Anisocytosis Slight; CH 31.7; HCT 40.3 % (39.0-53.0); HDW 3.45; HGB 13.8 gm/dL (13.0-17.5); MCH 31.2 pg (25.0-35.0); MCHC 34.3 g/dL (31.0-37.0); Mean Platelet Volume 7.5; Poikilocytosis Slight; RBC 4.43 m/uL (4.30-5.90); RDW 16.3 % (11.5-15.5); WBC 7.5 k/uL (3.8-10.6)
[2017-01-05 10:49] LABS: Anion Gap 8 mmol/L; Blood Urea Nitrogen 16 mg/dL (9-20); Carbon Dioxide 26 mmol/L (22-30); Chloride 105 mmol/L (98-107); Non-African American GFR(MDRD) >60 (>60 ml/min/1.73 sqM); Potassium 4.5 mmol/L (3.5-5.1); Sodium 139 mmol/L (137-145)
== END | disposition home or self-care (01) ==
LOC: LABPAT 09:46
PROVIDERS: ATTEND Internal Medicine Interventional Cardiology
DX: Z01.812 Encounter for preprocedural laboratory examination (principal); I25.10 Atherosclerotic heart disease of native coronary artery without angina pectoris
CPT/HCPCS: 80051; 82565; 84520; 85027

== ENCOUNTER 2017-01-12 05:53 | Day surgery (SDC) | payer MEDICARE ==
[2017-01-01 09:59] VITALS: BMI 35.5
[~2017-01-12 05:53] MED LIST: ALPRAZolam 0.25 MG TAB PO PRN; ALPRAZolam 0.5 MG TAB PO PRN; ASPIRIN 325 MG TAB PO STA; ATORVASTATIN 80 MG TAB PO STA; NITROGLYCERIN SL TABS 0.4 MG TAB SUBLINGUAL PRN; SODIUM CHLORIDE 0.9% 1,000 ML in EMPTY BAG 1 BAG IV ONE
[2017-01-12 06:57] LABS: Glucose,Whole Blood 328 mg/dL (75-99)
[2017-01-12] MEDS ORDERED: INSULIN LISPRO (humaLOG) 300 UNIT/3 ML VIAL SQ ONE (07:22)
[2017-01-12] MEDS ORDERED: SODIUM CHLORIDE 0.9% 1,000 ML in EMPTY BAG 1 BAG IV ONE (07:30)
[2017-01-12] MEDS ORDERED: MIDAZOLAM 2 MG/2 ML VIAL ONE (07:41)
[2017-01-12] MEDS ORDERED: diphenhydrAMINE 50 MG/ML 1 ML VIAL ONE (07:41)
[2017-01-12] MEDS ORDERED: LIDOCAINE 2% INJ 20 MG/ML (20 ML MDV) ONE (07:43)
[2017-01-12] MEDS ORDERED: diphenhydrAMINE 50 MG/ML 1 ML VIAL IVP ONE (07:48)
[2017-01-12] MEDS ORDERED: MIDAZOLAM 2 MG/2 ML VIAL IV ONE (07:48)
[2017-01-12] MEDS ORDERED: LIDOCAINE 2% INJ 20 MG/ML SQ ONE (07:50)
[2017-01-12] MEDS ORDERED: BIVALIRUDIN BOLUS 250 MG/50 ML IV ONE (07:59)
[2017-01-12] MEDS ORDERED: BIVALIRUDIN 250 MG in SODIUM CHLORIDE 0.9% 50 ML IV ONE ×2 (08:00→08:30)
[2017-01-12] MEDS ORDERED: NITROGLYCERIN 1000MCG/10ML SYRINGE INTRACORON ONE (08:45)
[2017-01-12] MEDS ORDERED: IODIXANOL 320 MG/ML 100 ML INTRAARTER ONE ×2 (08:47)
[2017-01-12] MEDS ORDERED: CLOPIDOGREL 75 MG TAB ONE ×2 (08:48)
[2017-01-12] MEDS ORDERED: IPRATROPIUM-ALBUTEROL 3 ML NEB INHALATION PRN (08:52)
[2017-01-12] MEDS ORDERED: MAG HYDROX/AL HYDROX/SIMETH 30 ML CUP PO PRN (08:53)
[2017-01-12] MEDS ORDERED: NITROGLYCERIN SL TABS 0.4 MG TAB SUBLINGUAL PRN (08:53)
[2017-01-12] MEDS ORDERED: ZOLPIDEM 5 MG TAB PO PRN (08:53)
[2017-01-12] MEDS ORDERED: RX INFO: IV CONTRAST WAS GIVEN 1 EACH MISC MISCELLANE PRN (08:53)
[2017-01-12] MEDS ORDERED: ATROPINE SULFATE 0.1 MG/ML 10ML SYRINGE IV PRN (08:53)
[2017-01-12] MEDS ORDERED: CLOPIDOGREL 75 MG TAB PO ONE (08:55)
[2017-01-12] MEDS ORDERED: GLUCOSAMINE SULFATE 750 MG PO SCH (09:00)
[2017-01-12] MEDS ORDERED: NON-FORMULARY DRUG (Garlic [Garlic] 1 TAB) PO SCH (09:00)
[2017-01-12] MEDS ORDERED: NON-FORMULARY DRUG (Flaxseed Oil [Omega-3 Flaxseed Oil] 1,000 MG) PO SCH (09:00)
[2017-01-12] MEDS: FUROSEMIDE 40 MG TAB PO SCH (10:45)
[2017-01-12] MEDS: ASPIRIN 325 MG TAB PO SCH (10:46)
[2017-01-12] MEDS: CALCIUM CARB-VIT D 500MG-200UN 1 EACH TAB PO SCH ×2 (10:46→20:43)
[2017-01-12] MEDS: LOSARTAN 25 MG TAB PO SCH (10:46)
[2017-01-12] MEDS: METOPROLOL TARTRATE 25 MG TAB PO SCH ×2 (10:48→20:42)
[2017-01-12] MEDS: VIT A,C & E-LUTEIN-MINERALS 1 EACH TAB PO SCH (10:49)
[2017-01-12] MEDS: SODIUM CHLORIDE 0.9% 1,000 ML IV SCH ×2 (10:49→16:22)
[2017-01-12 15:54] LABS: Glucose,Whole Blood 262 mg/dL (75-99)
[2017-01-12] MEDS: INSULIN LISPRO (humaLOG) 300 UNIT/3 ML VIAL SQ SCH ×2 (16:22→17:35)
[2017-01-12 16:31] LABS: Glucose,Whole Blood 292 mg/dL (75-99)
[2017-01-12 20:57] LABS: Glucose,Whole Blood 323 mg/dL (75-99)
[2017-01-12] MEDS ORDERED: MONTELUKAST 10 MG TAB PO SCH (21:00)
[2017-01-12] MEDS ORDERED: ATORVASTATIN 40 MG TAB PO SCH (21:00)
[2017-01-12] MEDS: INSULIN GLARGINE 100 UNIT/ML 10 ML VIAL SQ SCH (21:12)
--- NOTE | 2017-01-12 22:09 | PTCA ---
PERCUTANEOUSTRANS CORORONARY ANGIOGRAPHY DATE OF PROCEDURE: 01/12/2017. PERFORMING PHYSICIAN: Rachid Angeles M.D., [employer]. PROCEDURE PERFORMED: Successful stenting of the proximal left anterior descending artery using 3.0 x 12 mm Promus Premier drug-eluting stent, with good angiographic results. INDICATION: This is a pleasant 86-year-old gentleman who is known to have severe coronary artery disease with critical disease involving the proximal left anterior descending artery, based on a heart catheterization that was performed in August of 2016. He was treated medically at that point. He continues not feeling well and continues to have shortness of breath. I discussed with him the options of continued medical treatment and conservative approach verus proceeding with percutaneous coronary intervention. The patient chose to proceed with percutaneous coronary intervention. APPROACH: Right common femoral artery. COMPLICATIONS: None. LEVEL OF SEDATION: Moderate with sedation length of 60 minutes. PROCEDURE DESCRIPTION: After obtaining informed consent, the patient was brought to the cardiac warehouse general lab[facility]. The right common femoral artery was cannulated using micropuncture technique. The micropuncture wire passed easily. Then I placed a 23 cm 6 [place] sheath in the right common femoral artery. I did that because of the extreme tortuosity in the aortoiliac segments. Subsequently I started anticoagulation using Angiomax. Then I engaged the left main using a JL4.5 guiding catheter. After that, I wired the LAD using a Whisper wire. I did balloon angioplasty, initially using a 2.5 x 12 mm balloon and subsequently a 3.0 x 12 mm balloon. After that I was able to advance a 3.0 x 12 mm Promus Premier drug-eluting stent, where the stent was positioned under fluoroscopy guidance and deployed under 14 atmospheres for 20 seconds. The following angiogram showed good angiographic results without perforation and without dissection. There was an intermediate lesion involving the mid LAD, which I left alone. POSTPROCEDURE MANAGEMENT: 1. Dual anti-platelet therapy. 2. Risk factor modifications. 3. Follow up with the patient. MMODL / IJN: [id number] /
[2017-01-13 06:07] LABS: Glucose,Whole Blood 293 mg/dL (75-99)
[2017-01-13 06:36] LABS: Anisocytosis Slight; Basophils % (A) 0 %; CHCM 33.2; Eosinophils % (A) 0 %; HCT 40.2 % (39.0-53.0); HDW 3.16; HGB 13.1 gm/dL (13.0-17.5); Luc # (Auto) 0.17; Luc % (Auto) 1; Lymphocytes # (A) 1.8 k/uL (1.0-4.8); Lymphocytes % (A) 11 %; MCH 30.6 pg (25.0-35.0); MCHC 32.5 g/dL (31.0-37.0); Mean Platelet Volume 7.2; Monocytes # (A) 0.9 k/uL (0-1.0); Monocytes % (A) 6 %; Neutrophils # (A) 12.4 k/uL (1.3-7.7); Neutrophils % (A) 81 %; RBC 4.28 m/uL (4.30-5.90); RDW 16.2 % (11.5-15.5); WBC 15.4 k/uL (3.8-10.6); WBC (Perox) 14.81
[2017-01-13 06:51] LABS: Anion Gap 9 mmol/L; Blood Urea Nitrogen 24 mg/dL (9-20); Carbon Dioxide 24 mmol/L (22-30); Chloride 105 mmol/L (98-107); Glucose 244 mg/dL (74-99); Non-African American GFR(MDRD) >60 (>60 ml/min/1.73 sqM); Potassium 4.3 mmol/L (3.5-5.1); Sodium 138 mmol/L (137-145)
[2017-01-13] MEDS: INSULIN LISPRO (humaLOG) 300 UNIT/3 ML VIAL SQ SCH ×2 (07:05→12:00)
[2017-01-13] MEDS: INSULIN GLARGINE 100 UNIT/ML 10 ML VIAL SQ SCH (08:13)
[2017-01-13] MEDS: CALCIUM CARB-VIT D 500MG-200UN 1 EACH TAB PO SCH (08:14)
[2017-01-13] MEDS: CLOPIDOGREL 75 MG TAB PO SCH (08:14)
[2017-01-13] MEDS: METOPROLOL TARTRATE 25 MG TAB PO SCH (08:14)
[2017-01-13] MEDS: FUROSEMIDE 40 MG TAB PO SCH (08:14)
[2017-01-13] MEDS: LOSARTAN 25 MG TAB PO SCH (08:14)
[2017-01-13] MEDS: ASPIRIN 325 MG TAB PO SCH (08:14)
[2017-01-13] MEDS: VIT A,C & E-LUTEIN-MINERALS 1 EACH TAB PO SCH (08:14)
[2017-01-13 09:36] VITALS: RESP 20
[2017-01-13 11:36] VITALS: BP 109/55; PULSE 64; TEMP 97
[2017-01-13 12:00] LABS: Glucose,Whole Blood 190 mg/dL (75-99)
--- NOTE | 2017-01-13 21:01 | DS ---
DISCHARGE SUMMARY ADMISSION DATE: January 12, 2017. DISCHARGE DATE: January 13, 2017. BRIEF HISTORY: This is a pleasant 86-year-old, male patient who was admitted to the hospital yesterday and underwent successful balloon angioplasty and stenting of the left anterior descending artery with a good angiographic result and without any complication. The procedure was performed from the right groin which is soft and nontender and without any bruises. The patient is going to be discharged home on dual anti-platelet therapy and I will follow up with the patient next week in the office. MMODL / LEXUSN: [id number] /
== END 2017-01-13 12:38 | disposition home or self-care (01) ==
LOC: CATHCVL 05:53 → 6SEL 08:49 → CATHCVL 01-13 12:38
PROVIDERS: ATTEND Internal Medicine Interventional Cardiology
DX: I25.10 Atherosclerotic heart disease of native coronary artery without angina pectoris (principal); I25.84 Coronary atherosclerosis due to calcified coronary lesion; I25.5 Ischemic cardiomyopathy; I10 Essential (primary) hypertension; I35.0 Nonrheumatic aortic (valve) stenosis; R00.0 Tachycardia, unspecified; J96.10 Chronic respiratory failure, unspecified whether with hypoxia or hypercapnia; E11.9 Type 2 diabetes mellitus without complications; G47.33 Obstructive sleep apnea (adult) (pediatric); Z79.82 Long term (current) use of aspirin; Z79.84 Long term (current) use of oral hypoglycemic drugs; Z79.4 Long term (current) use of insulin; Z79.899 Other long term (current) drug therapy; Z87.891 Personal history of nicotine dependence; I25.2 Old myocardial infarction
CPT/HCPCS: 80048; 85025; 99152; 99153 ×3; C9600; C1769 ×3; C1887; C1725 ×2; C1894 ×2; C1874; J2001; J2250; J1200; Q9967; J0583